=== PATIENT | male | born 1930 | race Caucasian/White ===

== ENCOUNTER 2017-09-18 10:40 | Inpatient (IN) | payer MEDICARE, BC ==
--- NOTE | 2017-09-18 11:14 | RAD ---
PORTABLE AP CHEST XRAY: DATE: 09/18/17. HISTORY: Dyspnea. Abdominal problems. COMPARISON: None available. FINDINGS: Cardiac silhouette is magnified by projection. Pulmonary vasculature is within normal limits. There is mild focal eventration of the right hemidiaphragm. Lungs are clear. Degenerative changes are se en in the spine. Vascular calcification in the thoracic aorta. IMPRESSION: No acute cardiopulmonary process. POS: [facility]
[2017-09-18 11:26] LABS: #Eosinphils 0.2 thou/uL (0.0-0.7); #Monocytes 0.7 thou/uL (0.11-0.59); #Neutrophils 8.5 thou/uL (1.40-6.50); %Basophils 0.2 % (0.0-1.0); %Eosinophils 1.5 % (0.0-10.0); %Lymphocytes 9.7 % (21.0-51.0); %Monocytes 6.3 % (0.0-10.0); %Neutrophils 82.3 % (42.0-75.0); Hemoglobin 13.3 g/dL (14.0-18.0); Mean Corpuscular HGB CONC 33.7 g/dL (32.0-36.0); Mean Corpuscular Hemoglobin 32.1 pg (27.0-31.0); Mean Corpuscular Volume 95.1 fl (80.0-94.0); Mean Platelet Volume 7.8 fL (7.4-10.4); Platelet Count 198 thou/uL (130-400); RBC Distribution Width 12.7 % (11.5-14.5); Red Blood Cell (RBC) Count 4.15 mill/uL (4.70-6.10); White Blood Cell (WBC) Count 10.3 thou/uL (4.8-10.8)
[2017-09-18 11:40] LABS: ALT (SGPT) 13 U/L (8-55); AST (SGOT) 19 U/L (5-34); Albumin 3.4 g/dL (3.4-4.8); Alkaline Phosphatase 47 U/L (40-150); Anion Gap 18 mmol/L (10-20); BUN (Urea Nitrogen) 35 mg/dL (8.4-25.7); Bilirubin, Total 2.8 mg/dL (0.2-1.2); Calc. Creatinine Clearance 0 mL/min (70-130); Calcium 9.4 mg/dL (7.8-10.44); Carbon Dioxide 21 mmol/L (23-31); Chloride 102 mmol/L (98-107); Estimated GFR-MDRD 39; Globulin 2.6 g/dL (2.4-3.5); Glucose 275 mg/dL (83-110); Sodium 137 mmol/L (136-145)
[2017-09-18 13:46] LABS: INR-International Normal Ratio 1.3; Prothrombin Time 16.3 SEC (12.0-14.7)
--- NOTE | 2017-09-18 13:48 | CT ---
CT ABDOMEN AND PELVIS WITHOUT CONTRAST: Date: 09/18/17 HISTORY: Abdominal pain. COMPARISON: None. FINDINGS: There are layering bilateral pleural effusions, larger on the right and smaller on the left. Compress erlin atelectasis in lung bases. No significant pericardial effusion. Moderate volume ascites is present in the pelvis. The hepatic contour is nodular with innumerable hypodensities throughout it, concerning for hypodense masses. Spleen is small. Moderate diverticular disease sigmoid colon without active inflammation. Aortoiliac contour is nonaneurysmal, although there is a focal area of ectasia in infrarenal aorta me asuring up to 2.6 cm. Pancreas is somewhat atrophic. Small sliding hiatal hernia. There is a posterior diaphragmatic hernia containing some fluid. Bilateral hip arthroplasties are present. Large flowing lateral osteophytes of the lumbar spine. IMPRESSION: 1. Large right and small left layering pleural effusion with compressive atelectasis. 2. Abnormal nodular appearance of the liver with numerous hypodensities concerning for masses. Given patient's low GFR, ultrasound of the liver may be beneficial to evaluate for masses. Metastatic dise ase within the differential versus hepatocellular carcinoma multifocal. 3. Moderate to large volume ascites. This is present without evidence of portal hypertension. 4. Absent right kidney. There is a punctate calculus in inferior pole of the left kidney without douglas dence of obstructive uropathy. 4. Moderate diverticular disease throughout the colon without evidence of active inflammation. 5. Normal appearance of the appendix. POS: [facility]
[2017-09-18 14:22] VITALS: BMI 26.8
[2017-09-18] MEDS ORDERED: Guaifenesin DM 100-10/5 ML UDCUP PO PRN (15:13)
[2017-09-18] MEDS ORDERED: Dextrose 5% in Water 1,000 ML IV PRN (15:13)
[2017-09-18] MEDS ORDERED: Calcium Carbonate 500 MG ChewTAB PO PRN (15:13)
[2017-09-18] MEDS ORDERED: Dextrose 50% Abboject 50 ML SYRINGE SLOW IVP PRN (15:13)
[2017-09-18] MEDS ORDERED: Milk Of Magnesia 30 ML UDCUP PO PRN (15:13)
[2017-09-18] MEDS ORDERED: Mag-Al 1200 mg/1200 mg/30 ML UDCUP PO PRN (15:13)
[2017-09-18] MEDS ORDERED: Senokot 8.6 MG TAB PO PRN (15:13)
[2017-09-18] MEDS ORDERED: Acetaminophen 325 MG TAB PO PRN (15:13)
--- NOTE | 2017-09-18 15:50 | ULT ---
ABDOMINAL ULTRASOUND: 09/18/17 INDICATIONS: Abdominal pain. There is low volume ascites with fluid seen in all quadrants. Right pleural effusion is also noted. The gallbladder is not imaged and is surgically absent according to the technologist. The common duct is normal caliber. The liver has an abnormal echotexture. The liver is heterogeneous and nodular. These findings may rep resent changes of cirrhosis. There is no focal mass lesion; however, an infiltrative process cannot b e excluded by ultrasound. The pancreas is obscured. The aorta and IVC are obscured and not well imaged. The kidneys are imaged and appear unremarkable with no evidence of hydronephrosis. The spleen is imaged and is unremarkable without evidence of splenomegaly. IMPRESSION: 1. Low volume ascites. 2. Right pleural effusion. 3. Liver is abnormal with heterogeneity and nodular appearance. 4. Post cholecystectomy. POS: [facility]
[2017-09-18] MEDS ORDERED: Sodium Bicarbonate 2.4 MEQ/5 ML ONE (16:22)
[2017-09-18 16:39] LABS: CEA, Serum 1.73 ng/mL (< or = 5.0)
[2017-09-18 16:56] LABS: HBCM Index 0.06 S/CO (0-0.79); Hep A IgM AB Non-Reactive (NonReactive); Hep A IgM S/CO 0.08 S/CO (0-0.79); Hep B Surf Ag Non-Reactive S/CO (NonReactive); Hep C IgG Ab Non-Reactive (NonReactive); Hepatitis B Core IGM Abs Non-Reactive (NonReactive)
[2017-09-18] MEDS: Sodium Chloride 0.9% 500 ML IV SCH ×11 (18:05→23:36)
[2017-09-18] MEDS: Albumin 25% 25 GM/100 ML BOT IVPB SCH (18:06)
[2017-09-18 18:08] LABS: Fluid, Protein 3.9 g/dL (Not Available)
[2017-09-18 18:47] LABS: BF Color Red; Body Fluid Source Ascites Body Fluid; Clarity Cloudy/Turbid (Clear); Tube # EDTA
[2017-09-18 18:48] LABS: RBC Count-Automated 218000 /cumm; WBC/NonHematic-Auto 3120 /cumm
--- NOTE | 2017-09-18 18:54 | HP ---
PRIMARY CARE PHYSICIAN: Dr. Minor. REASON FOR ADMISSION: Multiple mets in the liver with ascites for evaluation. HISTORY OF PRESENT ILLNESS: The patient had gone to see his primary care physician, Dr. Minor last week for low blood pressures at home. He is also having loss of appetite and was feeling dizzy at times. He was asked to follow up in a week and they went back today. The patient was still feeling the same and in fact had beginning of abdominal distention. In view of his symptoms and the abdominal distention, Dr. Minor referred the patient to come to the emergency room for further evaluation. Here in the ER, patient has had a CAT scan done which showed multiple mets in the liver. He also had moderate to large ascites as well which is all new for patient. PAST MEDICAL AND SURGICAL HISTORY: History of hypertension, early dementia, diabetes mellitus type 2, dyslipidemia, history of having 1 kidney, bilateral hip replacement, cholecystectomy. PERSONAL HISTORY: Quit drinking alcohol totally from last two months. He has been drinking heavy for 40 years, but has quit heavy drinking from last 20 years or so now. Does not abuse drugs or smoke. He lives with his in their home. FAMILY HISTORY: Mother of cirrhosis and was alcoholic in her 70s. Father of dementia and its complications in his 70s. CURRENT MEDICATIONS: Toprol-XL 50 mg p.o. daily, Januvia 50 mg p.o. daily, Namenda 10 mg p.o. daily, Zetia 10 mg p.o. daily, aspirin 81 mg p.o. daily, donepezil 10 mg p.o. daily. ALLERGIES: No known drug allergies. REVIEW OF SYSTEMS: The following complete review of systems was negative, unless otherwise mentioned in the HPI or below: Constitutional: Weight loss or gain, ability to conduct usual activities. Skin: Rash, itching. Eyes: Double vision, pain. ENT/Mouth: Nose bleeding, neck stiffness, pain, tenderness. Cardiovascular: Palpitations, dyspnea on exertion, orthopnea. Respiratory: Shortness of breath, wheezing, cough, hemoptysis, fever or night sweats. Gastrointestinal: Poor appetite, abdominal pain, heartburn, nausea, vomiting, constipation, or diarrhea. Genitourinary: Urgency, frequency, dysuria, nocturia. Musculoskeletal: Pain, swelling. Neurologic/Psychiatric: Anxiety, depression. Allergy/Immunologic: Skin rash, bleeding tendency. PHYSICAL EXAMINATION: GENERAL: The patient is an 86-year-old male who is currently not in any acute distress. VITAL SIGNS: Blood pressure 128/76, pulse 104 per minute, respiratory rate 24 per minute, temperature 97.6 degrees Fahrenheit, saturating 94% on room air. NECK: Supple, no elevated JVD. HEENT: Extraocular muscles intact. Pupils reacting to light. Oral cavity mucous membranes are dry. No exudates or congestion. CARDIOVASCULAR: S1, S2 heard. Regular rhythm. RESPIRATORY: Air entry 1+ bilaterally. No rales or rhonchi. ABDOMEN: Soft. Bowel sounds are heard. No rigidity or guarding. There is mild ecchymosis around the umbilicus. The patient does not know the exact cause for the same. No rigidity or guarding. EXTREMITIES: No peripheral edema or calf tenderness. VASCULAR SYSTEM: Peripheral pulses 1+ bilateral, no ischemic ulcerations or gangrene. CENTRAL NERVOUS SYSTEM: No gross focal deficits seen. Patient is alert, awake , and oriented well. PSYCHIATRIC: The patient's mood is euthymic. No hallucinations or delusions. LABORATORY AND X-RAY FINDINGS: PT/INR is 16 and 1.3, PTT 33, BUN 35, creatinine 1.6, glucose 275. Serum bicarbonate 21, total bilirubin 2.8. AST, ALT and alkaline phosphatase are within normal limits. BNP is 95, albumin is 3.4. White count of 10, H and H 13 and 39, platelet count 198, MCV is 95 with 82% neutrophils. CLINICAL IMPRESSION AND PLAN: The patient will be admitted to medical floor for multiple mets in the liver bases on CT scan findings with new onset ascites. It is unclear his primary malignancy at present. The patient has had multiple moles removed for skin cancers in the past. He has also had heavy history of alcohol abuse 20 years ago. We will get an ultrasound guided paracentesis and send the fluid for cytology. We will also obtain tumor markers and hepatitis panel. The patient does not recall having had hepatitis in the past. His overall prognosis is guarded. I have discussed code status with patient and his at bedside. He wants to be a do not resuscitate at present. The patient definitely wants to know which malignancy he has if at all. Once it is proven to be malignant, the patient will decide if he wants to pursue further testing. ANNIED
[2017-09-18 19:19] LABS: BF Segmented Neutrophils 35 %; Cell Count Non Hematic 9 %; Lymphocytes 53 %
[2017-09-18] MEDS: Metoprolol Tartrate 25 MG TAB PO SCH (20:52)
--- NOTE | 2017-09-18 23:36 | ULT ---
EXAM: ULTRASOUND GUIDED PARACENTESIS 09/18/17 HISTORY: Ascites. Evaluate for cytology. Possible liver metastases. COMPARISON: None. FINDINGS: Technically successful ultrasound guided paracentesis. Total of 3 liters of blood tinged ascites was aspirated. There are no immediate or postprocedure complications. TECHNIQUE: Consent obtained to perform an ultrasound guided paracentesis. Patient's abdomen is evaluated. Right lower quadrant was deemed appropriate. Skin was prepped and draped in the sterile fashion. 1% lidocai ne, buffered with sodium bicarbonate was used for local anesthesia. Under ultrasound guidance, a 5 Fr ench 7 cm Yueh catheter was advanced in the peritoneal space. Via vacuum bottles, a total of 3 liters of blood tinged ascites was removed. Patient tolerated the procedure well. No immediate or postproce dure complications. A small amount of ascites does remain after removing three liters. IMPRESSION: Technically successful ultrasound guided paracentesis. POS: [facility]
[2017-09-19] MEDS: Sodium Chloride 0.9% 500 ML IV SCH ×13 (00:02→09:11)
[2017-09-19] MEDS: Albumin 25% 25 GM/100 ML BOT IVPB SCH ×4 (02:09→23:52)
[2017-09-19 05:18] LABS: #Eosinphils 0.1 thou/uL (0.0-0.7); #Monocytes 0.6 thou/uL (0.11-0.59); %Basophils 0.3 % (0.0-1.0); %Eosinophils 1.5 % (0.0-10.0); %Lymphocytes 14.6 % (21.0-51.0); %Monocytes 9.6 % (0.0-10.0); Hemoglobin 9.9 g/dL (14.0-18.0); Mean Corpuscular HGB CONC 34.5 g/dL (32.0-36.0); Mean Corpuscular Hemoglobin 32.7 pg (27.0-31.0); Mean Corpuscular Volume 94.6 fl (80.0-94.0); Platelet Count 145 thou/uL (130-400); RBC Distribution Width 12.7 % (11.5-14.5); Red Blood Cell (RBC) Count 3.04 mill/uL (4.70-6.10); White Blood Cell (WBC) Count 6.7 thou/uL (4.8-10.8)
[2017-09-19 05:25] LABS: ALT (SGPT) 9 U/L (8-55); AST (SGOT) 13 U/L (5-34); Alkaline Phosphatase 34 U/L (40-150); Anion Gap 10 mmol/L (10-20); BUN (Urea Nitrogen) 30 mg/dL (8.4-25.7); Bilirubin, Total 2.3 mg/dL (0.2-1.2); Calc. Creatinine Clearance 54 mL/min (70-130); Calcium 8.2 mg/dL (7.8-10.44); Carbon Dioxide 23 mmol/L (23-31); Chloride 105 mmol/L (98-107); Estimated GFR-MDRD 54; Globulin 1.9 g/dL (2.4-3.5); Glucose 167 mg/dL (83-110); Potassium 3.2 mmol/L (3.5-5.1); Protein, Total 4.9 g/dL (5.8-8.1); Sodium 135 mmol/L (136-145)
[2017-09-19] MEDS: Enoxaparin Sodium 30 MG/0.3 ML SYRINGE SC SCH (08:07)
[2017-09-19] MEDS: Metoprolol Tartrate 25 MG TAB PO SCH ×2 (10:46→21:30)
--- NOTE | 2017-09-19 11:37 | CON ---
DATE OF SERVICE: 09/19/2017 RENAL MEDICINE SUBJECTIVE: Patient was admitted for further evaluation of multiple mets in the liver. He was also found to have ascites. He underwent a paracentesis - about 3 liters removed. We are now being consu lted for his acute kidney injury. His initial creatinine was noted at 1.67. I discussed the case wi Dr. Shah. He was given saline and salt poor albumin and this improved the creatinine now t o 1.27. He was also noted to be on the dry side at that time. This morning, I evaluated the patient, he has no new complaints. He said he is feeling better. REVIEW OF SYSTEMS: No chest pain. Positive for abdominal fullness, occasional shortness of breath, no nausea, no vomiting, no diarrhea, no constipation, no hematochezia, no melena, no hematemesis. Ap petite and energy level is fair. No headache, no diplopia, no syncopal episode. Occasional joint pa ins. Positive for abdominal fullness. MEDICATIONS: Currently on albumin 25 grams IV q.6, Tums 1000 mg q.4, Lovenox 30 mg subcu every day, Humalog sliding scale, Lopressor 12.5 mg p.o. b.i.d., Senna 2 tabs at bedtime p.r.n. PAST MEDICAL HISTORY: 1. Hypertension. 2. History of early dementia. 3. Type 2 diabetes mellitus. 4. Dyslipidemia. 5. Solitary kidney. 6. DJD. PAST SURGICAL HISTORY: 1. Status post bilateral hip replacement. 2. Status post cholecystectomy. SOCIAL HISTORY: Patient is a heavy drinker for the last several years, but recently quit alcohol int suresh. He is and lives with his . He has two adopted children. He is a retired [employer] for [employer]. Education, Ph.D. No drug abuse. Denies any blood transfusion. FAMILY HISTORY: Noncontributory. ALLERGIES: None. TRAUMA: None. IMMUNIZATIONS: Up to date. HOSPITALIZATIONS: Please see past medical history. PHYSICAL EXAMINATION: VITAL SIGNS: Blood pressure is noted at 111/62, heart rate 76, respiratory rate 18, temperature 99.2 , and pulse ox 91%. GENERAL: Awake, supine, comfortable, not in distress. SKIN: Adequate turgor. HEENT: He has slightly pale conjunctivae, anicteric sclerae. NECK: No neck mass, no carotid bruits, no JVD. CHEST: No deformities. LUNGS: Clear breath sounds, no wheezing, no crackles. HEART: Normal sinus rhythm. No murmurs, no gallops or rubs. ABDOMEN: Globular, soft, nontender. Positive for mild ascites. EXTREMITIES: No edema, no deformities. NEUROLOGIC: Awake and oriented to 3 spheres. Moving all extremities. No tremors, no asterixis, no ataxia. LABORATORY DATA: Laboratories of 09/19/2017, white count 6.7, hemoglobin 9.9. Sodium 135, carbon dioxide 23, potassium 3.2, BUN 30, creatinine 1.27, calcium 8.2, albumin 3.0. IMAGING DATA: On 09/18/2017, CT scan of the abdomen and pelvis showed large right and small pleural effusion. Abnormal nodular appearance of liver with numerous hypodensities suggestive of a possible metastatic cancer. He has moderate to large volume ascites. Left kidney shows no evidence of obstru ctive uropathy. ASSESSMENT AND PLAN: 1. Acute kidney injury - most likely a hemodynamically mediated renal dysfunction. It improved with volume repletion with normal saline and salt poor albumin. My plan is to continue the salt poor alb umin 25 grams IV q.6 for 3 more days. 2. Metastatic liver disease - await being further worked up. GI/Oncology consultation awaiting. 3. Ascites. Patient is status post paracentesis. Three liters of ascites was removed. Overall, pr ognosis remains guarded. Recheck base met and CBC in a.m.
--- NOTE | 2017-09-19 12:11 | PDOC.PN ---
- Subjective Encounter Start Date: 09/19/17 Encounter Start Time: 10:40 Subjective: no sob, feels better - Objective Resuscitation Status: Resuscitation Status DNR:Do Not Resuscitate MAR Reviewed: Yes Vital Signs & Weight: Vital Signs (12 hours) Temp Pulse Resp BP Pulse Ox 09/19/17 11:43 97.4 F L 78 18 117/69 91 L 09/19/17 08:00 99.2 F 76 18 91 L 09/19/17 07:53 99.2 F 76 18 111/62 91 L 09/19/17 03:43 97.9 F 78 16 102/62 92 L 09/19/17 01:34 83 107/66 Weight Weight 198 lb I&O: 09/18/17 09/19/17 09/20/17 06:59 06:59 07:59 Intake Total 3220 Output Total 650 Balance 2570 Result Diagrams: 09/19/17 04:04 09/19/17 04:04 Additional Labs: Accuchecks 09/19/17 09/19/17 09/18/17 11:29 05:39 19:47 POC Glucose 240 H 179 H 222 H 09/18/17 17:30 POC Glucose 200 H Phys Exam - Physical Examination HEENT: PERRLA, moist MMs Neck: no JVD, supple Respiratory: no wheezing, no rales Cardiovascular: RRR, no significant murmur Gastrointestinal: soft, non-tender, positive bowel sounds Musculoskeletal: no edema, pulses present Neurological: non-focal, moves all 4 limbs Psychiatric: A&O x 3 Dx/Plan (1) Liver mass Code(s): R16.0 - HEPATOMEGALY, NOT ELSEWHERE CLASSIFIED Status: Acute (2) Ascites Code(s): R18.8 - OTHER ASCITES Status: Acute Qualifiers: Ascites type: malignant Qualified Code(s): R18.0 - Malignant ascites (3) Cirrhosis Code(s): K74.60 - UNSPECIFIED CIRRHOSIS OF LIVER Status: Chronic Qualifiers: Hepatic cirrhosis type: alcoholic cirrhosis Ascites presence: with ascites Qualified Code(s): K70.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 (4) HTN (hypertension) Code(s): I10 - ESSENTIAL (PRIMARY) HYPERTENSION Status: Chronic Qualifiers: Hypertension type: essential hypertension Qualified Code(s): I10 - Essential (primary) hypertension (5) Dyslipidemia Code(s): E78.5 - HYPERLIPIDEMIA, UNSPECIFIED Status: Chronic (6) Dementia Code(s): F03.90 - UNSPECIFIED DEMENTIA WITHOUT BEHAVIORAL DISTURBANCE Status: Chronic Qualifiers: Dementia type: Alzheimer's disease Dementia behavioral disturbance: without behavioral disturbance (7) YARY (acute kidney injury) Code(s): N17.9 - ACUTE KIDNEY FAILURE, UNSPECIFIED Status: Acute - Plan had paracentesis with removal of 3lts bloody fluid -: await cytology of fluid -: d/w reg CT and usg findings -: sodium and renal function is stablizing -: d/w and pt at bedside * . Review of Systems - Medications/Allergies Allergies/Adverse Reactions: Allergies Allergy/AdvReac Type Severity Reaction Status Date / Time No Known Allergies Allergy Verified 09/18/17 14:26 Medications: Current Medications Acetaminophen (Tylenol) 650 mg PO Q4H PRN PRN Reason: Headache/Fever or Pain Al Hydroxide/Mg Hydroxide (Maalox) 30 ml PO Q6H PRN PRN Reason: Heartburn or Indigestion Albumin Human (Albumin 25%) 25 gm IVPB 0200,1000,1800 [facility] Stop: 09/20/17 03:01 Last Admin: 09/19/17 10:46 Dose: 25 gm Calcium Carbonate (Tums) 1,000 mg PO Q4H PRN PRN Reason: Heartburn or Indigestion Dextrose/Water (Dextrose 50%) 25 gm SLOW IVP PRN PRN PRN Reason: Hypoglycemia Enoxaparin Sodium (Lovenox) 30 mg SC 0900 [facility] Last Admin: 09/19/17 08:07 Dose: 30 mg Glucagon (Glucagon) 1 mg IM PRN PRN PRN Reason: Hypoglycemia Guaifenesin/Dextromethorphan (Robitussin Dm) 15 ml PO Q4H PRN PRN Reason: Cough Dextrose/Water (D5w) 1,000 mls @ 0 mls/hr IV .Q0M PRN; As Directed PRN Reason: Hypoglycemia Insulin Human Lispro (Humalog) 0 units SC .MILD SLIDING SCALE PRN PRN Reason: Mild Correctional Scale Magnesium Hydroxide (Milk Of Magnesium) 30 ml PO DAILYPRN PRN PRN Reason: Constipation Metoprolol Tartrate (Lopressor) 12.5 mg PO BID [facility] Last Admin: 09/19/17 10:46 Dose: 12.5 mg Senna (Senokot) 2 tab PO HSPRN PRN PRN Reason: Constipation
[2017-09-19] MEDS: HumaLOG 300 UNITS/3 ML VIAL SC PRN (12:46)
[2017-09-19] MEDS ORDERED: Albumin 25% 25 GM/100 ML BOT IVPB SCH (18:00)
--- NOTE | 2017-09-20 00:50 | CON ---
DATE OF CONSULTATION: 09/19/2017 REFERRING PHYSICIAN: Dr. Alissa Shah. REASON FOR CONSULTATION: Anorexia, vague abdominal discomfort, not feeling good. HISTORY OF PRESENT ILLNESS: Mr. Joseph Martínez is a very pleasant 86-year-old male, who is a regular patient of Dr. Duke Minor. The patient has been feeling very weak and also his blood press ure is running low and has been feeling dizzy off and on. He also has poor appetite. The patient wa s seen in the room along with his . The patient was seen by Dr. Minor a week ago, because of gene ralized weakness. We went back to see him again and Dr. Minor referred him to the ER for admission. The patient has a history of alcohol abuse for many years. He is drinking very heavily for nearly 20 years. However, last 20 years, he is cut down his drinking. He still drinks alcohol at least 1 or 2 drinks a day. His tells me when he drinks alcohol, he is very generous with pouring alcohol, but when she makes his cocktail, she wants to use a small amount of alcohol. Over the last two month s, he stopped drinking completely. The patient is feeling dizzy with generalized fatigue and tiredne ss and weakness over the last couple of weeks. He has also been not eating very well. He lost a few pounds, but she is not able to tell me how much weight he has lost. He came to the ER and was hospi talized. The patient had an abdominal CAT scan. The CAT scan shows ascites and also multiple hypode nse lesions in the liver, possibly metastatic disease versus primary hepatocellular carcinoma. Wilner demarco, had abdominal sonogram subsequently. The sonogram shows a nodular liver and the liver archi tecture is different. However, there is no definite liver masses seen. He had a paracentesis done y esterday with 3 liters of fluid drained. The fluid was bloody. The cytology is pending at the prese nt time. Since his paracentesis, he is actually feeling a whole lot better. The patient has no abdo rancho pain, no nausea or vomiting. His bowel movements are fairly regular. No history of hematochez ia or melena. The patient had a serum alpha fetoprotein level, which came back normal at 2. He has no prior history of any liver disease. No prior history of hepatitis C or B. No relevant history. ALLERGIES: None. SOCIAL HISTORY: The patient is . He does have mild dementia as per the patient's . The patient was drinking alcohol heavily for nearly 20 years, but he stopped drinking 20 years ago, but s till was drinking 5 times a week until 2 months ago. He stopped drinking completely alcohol 2 months ago. Does not smoke. MEDICAL ILLNESSES: 1. Hypertension. 2. Early dementia and his memory loss varies. His tells me sometimes he is completely cognitio n, sometimes he gets confused. 3. Type 2 diabetes. 4. Hyperlipidemia. 5. Has had only one kidney for many years. 6. Bilateral hip replacement. 7. Cholecystectomy. FAMILY HISTORY: Multiple family members have had alcoholic problem with liver cirrhosis. This inclu nona his mother and also an aunt on mother's side. Father of dementia. MEDICATIONS: Include: 1. Toprol-XL 50 once a day. 2. Januvia 50 once a day. 3. Namenda 10 mg once a day. 4. Zetia 10 mg once a day. 5. Aspirin 81 mg once a day. 6. Donepezil 10 mg p.o. once a day. REVIEW OF SYSTEMS: Constitutional: No history of fever or night sweats, but does have a history of poor appetite and weight loss recently. Central nervous system: No history of seizure disorder. No chronic headache, no syncope, no TIA. Respiratory system: No history of chronic cough, hemoptysis, dyspnea on exertion. Cardiovascular system: No chest pain, no palpitation, no orthopnea or PND. G astrointestinal: History of anorexia, poor appetite with not eating well over the last couple of wee ks or more. History of weight loss . No history of dysphagia or odynophagia. No history of he matochezia or melena. Genitourinary: Denies any dysuria, hematuria or frequent urination. Musculos keletal: Has some back pain. Neuropsychiatric: History of dementia, mild. Other system review is unremarkable. PHYSICAL EXAMINATION: GENERAL: This is a very pleasant, elderly male, appears very comfortable. He is awake, al ert, and communicative. He is in no distress. VITAL SIGNS: Temperature 97.4 degrees Fahrenheit, pulse is 78, blood pressure is 117/69. HEENT: Conjunctivae clear. NECK: Supple. No adenitis or thyromegaly noted. CARDIOVASCULAR SYSTEM: First and second heart sounds are normal. LUNGS: Clear to auscultation. ABDOMEN: Soft to palpate. Abdomen is mildly distended. He still has ascites. There is no organome elaina or masses. Bowel sounds are normal. EXTREMITIES: Reveal no edema. CENTRAL NERVOUS SYSTEM: Grossly within normal limits. ADMITTING LABORATORY DATA: CBC: WBC today is 6700, hemoglobin 9.9 and dropped from 13.3, hematocrit 28.7, MCV 94.7, platelet count is 145,000, polymorphs 74, lymphocytes 14, monocytes 9. Serum chemis tries: Sodium 135, potassium 3.2, chloride 105, bicarbonate 23, BUN is 30, creatinine is 1.27, gluco se 167, calcium 8.2, bilirubin 2.3, AST 13, ALT 9, alkaline phosphatase 34, total protein 12.9. album in 3, globulin 1.9. An abdominal CAT scan done shows multiple hypodense lesions in the liver, possib ly primary hepatocellular carcinoma versus metastatic disease with ascites. His right kidney is miss ing. An abdominal sonogram shows no liver masses, but does show nodular liver, indicating liver cirr hosis. The ascitic tap done yesterday, which showed numerous rbc's and fluid with blood stain. It i s probably clear with a blood stained fluid indicating malignancy or he had a traumatic paracentesis. The cytology is pending at the present time. Interestingly, his serum AFP level is actually normal , less than 2, it makes hepatoma unlikely. I reviewed the sonogram and CAT scan findings with Radiol ogy. The CAT scan does show some hypodense lesion, but the sonogram does not show any liver masses. OVERALL IMPRESSION: The history and physical findings are very suggestive of: 1. Liver cirrhosis with ascites. The ascitic fluid cytology pending at the present time. 2. Liver masses on CAT scan, but sonogram shows no liver masses. 3. Absent right kidney. Recommendation is to await cytology for fluid . 4. Consider doing an MRI, a better study. The patient has seen the mold preparer in [facility]. I will sign off the patient to the mold preparer who saw him before.
[2017-09-20 04:42] LABS: #Eosinphils 0.2 thou/uL (0.0-0.7); #Lymphocytes 0.9 thou/uL (1.20-3.40); #Monocytes 0.7 thou/uL (0.11-0.59); #Neutrophils 5.6 thou/uL (1.40-6.50); %Basophils 0.1 % (0.0-1.0); %Eosinophils 2.2 % (0.0-10.0); %Lymphocytes 12.6 % (21.0-51.0); %Monocytes 8.9 % (0.0-10.0); %Neutrophils 76.2 % (42.0-75.0); Hemoglobin 9.9 g/dL (14.0-18.0); Mean Corpuscular HGB CONC 34.6 g/dL (32.0-36.0); Mean Corpuscular Hemoglobin 32.6 pg (27.0-31.0); Mean Corpuscular Volume 94.1 fl (80.0-94.0); Mean Platelet Volume 7.6 fL (7.4-10.4); Platelet Count 139 thou/uL (130-400); RBC Distribution Width 12.7 % (11.5-14.5); Red Blood Cell (RBC) Count 3.05 mill/uL (4.70-6.10); White Blood Cell (WBC) Count 7.4 thou/uL (4.8-10.8)
[2017-09-20 04:53] LABS: Anion Gap 10 mmol/L (10-20); BUN (Urea Nitrogen) 19 mg/dL (8.4-25.7); Calc. Creatinine Clearance 65 mL/min (70-130); Calcium 8.3 mg/dL (7.8-10.44); Carbon Dioxide 22 mmol/L (23-31); Chloride 106 mmol/L (98-107); Estimated GFR-MDRD 67; Glucose 170 mg/dL (83-110); Potassium 3.4 mmol/L (3.5-5.1); Sodium 135 mmol/L (136-145)
[2017-09-20] MEDS: Albumin 25% 25 GM/100 ML BOT IVPB SCH ×4 (05:21→23:46)
[2017-09-20] MEDS: HumaLOG 300 UNITS/3 ML VIAL SC PRN ×2 (06:36→17:30)
[2017-09-20] MEDS: Metoprolol Tartrate 25 MG TAB PO SCH ×2 (08:49→20:26)
[2017-09-20] MEDS: Enoxaparin Sodium 30 MG/0.3 ML SYRINGE SC SCH (08:51)
[2017-09-20] MEDS ORDERED: Tamsulosin HCl 0.4 MG CAP PO SCH (09:15)
--- NOTE | 2017-09-20 11:56 | MRI ---
MRI ABDOMEN WITHOUT CONTRAST: Date: 09/20/17 PROVIDED CLINICAL HISTORY: Liver masses on CT examination. FINDINGS: Multiplanar, multisequence MR imaging was performed of the abdomen. The patient was unable to suspend respiration necessary for adequate imaging. Ascites is noted. Multiple nodular foci of signal altera tion on fluid sensitive sequences are noted throughout the hepatic parenchyma, incompletely character ized on the basis of this examination. Nonspecific regional marrow signal alteration involving the sp ine, which may be on the basis of red marrow reconversion. IMPRESSION: Nondiagnostic examination. Repeat imaging recommended when the patient is able to tolerate such. POS: [facility]
--- NOTE | 2017-09-20 13:28 | PDOC.PN ---
- Subjective Encounter Start Date: 09/20/17 Encounter Start Time: 12:00 Subjective: awake, not in distress - Objective Resuscitation Status: Resuscitation Status DNR:Do Not Resuscitate MAR Reviewed: Yes Vital Signs & Weight: Vital Signs (12 hours) Temp Pulse Resp BP Pulse Ox 09/20/17 11:55 97.5 F L 82 18 120/72 94 L 09/20/17 08:00 97.8 F 93 18 92 L 09/20/17 07:49 97.8 F 93 18 117/74 92 L Weight Weight 198 lb I&O: 09/19/17 09/20/17 09/21/17 05:59 06:59 06:59 Intake Total Output Total Balance Result Diagrams: 09/20/17 04:22 09/20/17 04:22 Additional Labs: Accuchecks 09/20/17 09/20/17 09/19/17 11:49 05:45 20:48 POC Glucose 196 H 198 H 185 H 09/19/17 17:51 POC Glucose 140 H Phys Exam - Physical Examination HEENT: PERRLA, moist MMs Neck: no JVD, supple Respiratory: no wheezing, no rales Cardiovascular: RRR, no significant murmur Gastrointestinal: soft, non-tender, positive bowel sounds ascites+ Musculoskeletal: no edema, pulses present Neurological: non-focal, moves all 4 limbs Dx/Plan (1) Liver mass Code(s): R16.0 - HEPATOMEGALY, NOT ELSEWHERE CLASSIFIED Status: Acute (2) Ascites Code(s): R18.8 - OTHER ASCITES Status: Acute Qualifiers: Ascites type: malignant Qualified Code(s): R18.0 - Malignant ascites (3) Cirrhosis Code(s): K74.60 - UNSPECIFIED CIRRHOSIS OF LIVER Status: Chronic Qualifiers: Hepatic cirrhosis type: alcoholic cirrhosis Ascites presence: with ascites Qualified Code(s): K70.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 (4) HTN (hypertension) Code(s): I10 - ESSENTIAL (PRIMARY) HYPERTENSION Status: Chronic Qualifiers: Hypertension type: essential hypertension Qualified Code(s): I10 - Essential (primary) hypertension (5) Dyslipidemia Code(s): E78.5 - HYPERLIPIDEMIA, UNSPECIFIED Status: Chronic (6) Dementia Code(s): F03.90 - UNSPECIFIED DEMENTIA WITHOUT BEHAVIORAL DISTURBANCE Status: Chronic Qualifiers: Dementia type: Alzheimer's disease Dementia behavioral disturbance: without behavioral disturbance (7) YARY (acute kidney injury) Code(s): N17.9 - ACUTE KIDNEY FAILURE, UNSPECIFIED Status: Resolved - Plan pt did not tolerate MRI procedure, needs redo -: await cytology of ascitic fluid -: likely has cirrhosis with prior alc abuse -: is on low dose lopressor, may dc alb infusions if ok with nephrology -: to amb as tolerated * . Review of Systems - Medications/Allergies Allergies/Adverse Reactions: Allergies Allergy/AdvReac Type Severity Reaction Status Date / Time No Known Allergies Allergy Verified 09/18/17 14:26 Medications: Current Medications Acetaminophen (Tylenol) 650 mg PO Q4H PRN PRN Reason: Headache/Fever or Pain Al Hydroxide/Mg Hydroxide (Maalox) 30 ml PO Q6H PRN PRN Reason: Heartburn or Indigestion Albumin Human (Albumin 25%) 25 gm IVPB Q6HR [facility] Stop: 09/22/17 12:01 Last Admin: 09/20/17 12:00 Dose: 25 gm Calcium Carbonate (Tums) 1,000 mg PO Q4H PRN PRN Reason: Heartburn or Indigestion Dextrose/Water (Dextrose 50%) 25 gm SLOW IVP PRN PRN PRN Reason: Hypoglycemia Enoxaparin Sodium (Lovenox) 30 mg SC 0900 [facility] Last Admin: 09/20/17 08:51 Dose: 30 mg Glucagon (Glucagon) 1 mg IM PRN PRN PRN Reason: Hypoglycemia Guaifenesin/Dextromethorphan (Robitussin Dm) 15 ml PO Q4H PRN PRN Reason: Cough Dextrose/Water (D5w) 1,000 mls @ 0 mls/hr IV .Q0M PRN; As Directed PRN Reason: Hypoglycemia Insulin Human Lispro (Humalog) 0 units SC .MILD SLIDING SCALE PRN PRN Reason: Mild Correctional Scale Last Admin: 09/20/17 06:36 Dose: 2 unit Magnesium Hydroxide (Milk Of Magnesium) 30 ml PO DAILYPRN PRN PRN Reason: Constipation Metoprolol Tartrate (Lopressor) 12.5 mg PO BID [facility] Last Admin: 09/20/17 08:49 Dose: 12.5 mg Senna (Senokot) 2 tab PO HSPRN PRN PRN Reason: Constipation
--- NOTE | 2017-09-20 17:26 | PRG ---
DATE OF SERVICE: 09/20/2017 HOSPITAL VISIT NOTE SUBJECTIVE: This is an 86-year-old male with past history of alcohol abuse who presents wi th generalized weakness, hypotension and ascites. He also had abdominal CAT scan which revealed ques tionable liver mets. Also, possibility of hepatocellular carcinoma. However, his ASA level is justin l. His subsequent followup visit shows no evidence of malignancy. I will discuss this with radiolog ist MRI of the abdomen today. The patient has done well since we did abdominal paracentesis. He is not having discomfort with abdominal pain and nausea, etc. He has good appetite. His ascitic fluid cytology is pending. PHYSICAL EXAMINATION: VITAL SIGNS: Afebrile, pulse 93, blood pressure 117/74. CARDIOVASCULAR SYSTEM: First and second heart sounds normal. LUNGS: Clear to auscultation. ABDOMEN: Soft and nontender. He has some ascites. No rebound or guarding. ASSESSMENT AND PLAN: 1. Liver cirrhosis, ascites. 2. Questionable history of liver mets versus primary hepatocellular carcinoma, so far the workup has been unequivocal. Plan fluid restriction. 3. MRI of abdomen today. Further recommendations will be dependent on MRI findings.
[2017-09-21] MEDS: Albumin 25% 25 GM/100 ML BOT IVPB SCH (05:10)
[2017-09-21] MEDS: Enoxaparin Sodium 30 MG/0.3 ML SYRINGE SC SCH (09:22)
[2017-09-21] MEDS: Metoprolol Tartrate 25 MG TAB PO SCH (09:22)
[2017-09-21] MEDS: HumaLOG 300 UNITS/3 ML VIAL SC PRN (12:14)
--- NOTE | 2017-09-21 12:27 | PDOC.PN ---
- Subjective Encounter Start Date: 09/21/17 Encounter Start Time: 11:10 Subjective: awake, not in distress, at bedside -: is amb in room, eating well -: no abd pain - Objective Resuscitation Status: Resuscitation Status DNR:Do Not Resuscitate MAR Reviewed: Yes Vital Signs & Weight: Vital Signs (12 hours) Temp Pulse Resp BP Pulse Ox 09/21/17 08:00 98.1 F 89 16 115/68 91 L Weight Weight 198 lb I&O: 09/20/17 09/21/17 09/22/17 06:59 06:59 06:59 Intake Total 1100 Output Total 250 Balance 850 Result Diagrams: 09/20/17 04:22 09/20/17 04:22 Additional Labs: Accuchecks 09/21/17 09/21/17 09/20/17 11:20 05:29 21:28 POC Glucose 298 H 182 H 185 H 09/20/17 16:30 POC Glucose 233 H Phys Exam - Physical Examination HEENT: PERRLA, moist MMs Neck: no JVD, supple Respiratory: no wheezing, no rales Cardiovascular: RRR, no significant murmur Gastrointestinal: soft, non-tender, positive bowel sounds ascites++ Musculoskeletal: no edema, pulses present Neurological: non-focal, moves all 4 limbs Psychiatric: A&O x 3 Dx/Plan (1) Liver mass Code(s): R16.0 - HEPATOMEGALY, NOT ELSEWHERE CLASSIFIED Status: Acute (2) Ascites Code(s): R18.8 - OTHER ASCITES Status: Acute Qualifiers: Ascites type: due to alcoholic cirrhosis Qualified Code(s): K70.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 (3) Cirrhosis Code(s): K74.60 - UNSPECIFIED CIRRHOSIS OF LIVER Status: Chronic Qualifiers: Hepatic cirrhosis type: alcoholic cirrhosis Ascites presence: with ascites Qualified Code(s): K70.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 (4) HTN (hypertension) Code(s): I10 - ESSENTIAL (PRIMARY) HYPERTENSION Status: Chronic Qualifiers: Hypertension type: essential hypertension Qualified Code(s): I10 - Essential (primary) hypertension (5) Dyslipidemia Code(s): E78.5 - HYPERLIPIDEMIA, UNSPECIFIED Status: Chronic (6) Dementia Code(s): F03.90 - UNSPECIFIED DEMENTIA WITHOUT BEHAVIORAL DISTURBANCE Status: Chronic Qualifiers: Dementia type: Alzheimer's disease Dementia behavioral disturbance: without behavioral disturbance (7) YARY (acute kidney injury) Code(s): N17.9 - ACUTE KIDNEY FAILURE, UNSPECIFIED Status: Resolved - Plan start lasix and spironolactone with nadolol -: asc fluid cytometry showed no malignant cells but fluid was bloody ?traumat -: -ic tap. Initial CT was suspicious for mets but usg said likely nodules fro -: -m cirrhotic liver. Will get repeat MRI abd in am and hope he can tolerate -: -it better with good images to confirm liver mass. D/w all this with * . Review of Systems - Medications/Allergies Allergies/Adverse Reactions: Allergies Allergy/AdvReac Type Severity Reaction Status Date / Time No Known Allergies Allergy Verified 09/18/17 14:26 Medications: Current Medications Acetaminophen (Tylenol) 650 mg PO Q4H PRN PRN Reason: Headache/Fever or Pain Al Hydroxide/Mg Hydroxide (Maalox) 30 ml PO Q6H PRN PRN Reason: Heartburn or Indigestion Calcium Carbonate (Tums) 1,000 mg PO Q4H PRN PRN Reason: Heartburn or Indigestion Dextrose/Water (Dextrose 50%) 25 gm SLOW IVP PRN PRN PRN Reason: Hypoglycemia Enoxaparin Sodium (Lovenox) 30 mg SC 0900 [facility] Last Admin: 09/21/17 09:22 Dose: 30 mg Furosemide (Lasix) 40 mg SLOW IVP 0600,1400 [facility] Glucagon (Glucagon) 1 mg IM PRN PRN PRN Reason: Hypoglycemia Guaifenesin/Dextromethorphan (Robitussin Dm) 15 ml PO Q4H PRN PRN Reason: Cough Dextrose/Water (D5w) 1,000 mls @ 0 mls/hr IV .Q0M PRN; As Directed PRN Reason: Hypoglycemia Insulin Human Lispro (Humalog) 0 units SC .MILD SLIDING SCALE PRN PRN Reason: Mild Correctional Scale Last Admin: 09/21/17 12:14 Dose: 4 unit Magnesium Hydroxide (Milk Of Magnesium) 30 ml PO DAILYPRN PRN PRN Reason: Constipation Nadolol (Corgard) 40 mg PO DAILY [facility] Senna (Senokot) 2 tab PO HSPRN PRN PRN Reason: Constipation Spironolactone (Aldactone) 25 mg PO [facility] Stop: 09/21/17 14:00 Spironolactone (Aldactone) 25 mg PO [facility]
[2017-09-21] MEDS ORDERED: Spironolactone 25 MG TAB PO SCH (12:30)
[2017-09-21] MEDS: Furosemide 40 MG/4 ML VIAL SLOW IVP SCH (13:36)
--- NOTE | 2017-09-21 17:08 | PRG ---
DATE OF SERVICE: 09/21/2017 SUBJECTIVE: The patient is feeling well. He has no complaints. He is having no nausea, vomiting or abdominal pain. OBJECTIVE: VITAL SIGNS: Temperature 97.6, pulse 65, respiratory rate 18, blood pressure 113/71. CHEST: Clear. CARDIOVASCULAR: Regular rate and rhythm. ABDOMEN: Soft, distended without organomegaly or masses. It is nontender. EXTREMITIES: Show no pitting edema. LABORATORY DATA: Shows a white blood cell count of 7.4, hemoglobin 9.9, hematocrit 28.7. Laboratory shows a total bilirubin of 2.3, alkaline phosphatase 34, normal AST and ALT. Albumin is 3.0. Perit valdez fluid shows a 3100 white blood cells and 2218 rbc's, 35% neutrophils. Fluid albumin was 2.6 gr ams per deciliter. Albumin was 3.4 grams per deciliter on admission and 3.0 grams per deciliter late r that day. Serology for hepatitis A, B, and C are negative. ASSESSMENT: 1. New onset ascites -- most likely secondary to cirrhosis. 2. Liver mass by CT scan. 3. Abnormal peritoneal fluid -- high white blood cell count and increased neutrophils. RECOMMENDATIONS: 1. Agree with spironolactone and Lasix. 2. Stable for discharge from GI standpoint. 3. Low sodium diet. 4. The patient is to follow up with Dr. Brown in the outpatient setting. 5. Repeat MRI tomorrow.
[2017-09-22] MEDS: Furosemide 40 MG/4 ML VIAL SLOW IVP SCH ×2 (05:16→14:42)
[2017-09-22] MEDS: HumaLOG 300 UNITS/3 ML VIAL SC PRN ×2 (05:43→16:30)
[2017-09-22] MEDS ORDERED: Spironolactone 25 MG TAB PO SCH ×2 (08:00→18:00)
[2017-09-22 08:59] LABS: #Eosinphils 0.2 thou/uL (0.0-0.7); #Lymphocytes 1.7 thou/uL (1.20-3.40); #Monocytes 0.9 thou/uL (0.11-0.59); #Neutrophils 6.9 thou/uL (1.40-6.50); %Lymphocytes 17.7 % (21.0-51.0); %Monocytes 9.3 % (0.0-10.0); %Neutrophils 70.9 % (42.0-75.0); Hemoglobin 12.2 g/dL (14.0-18.0); Mean Corpuscular HGB CONC 34.1 g/dL (32.0-36.0); Mean Corpuscular Hemoglobin 32.1 pg (27.0-31.0); Mean Corpuscular Volume 94.1 fl (80.0-94.0); Mean Platelet Volume 7.3 fL (7.4-10.4); Platelet Count 197 thou/uL (130-400); RBC Distribution Width 12.8 % (11.5-14.5); Red Blood Cell (RBC) Count 3.79 mill/uL (4.70-6.10); White Blood Cell (WBC) Count 9.7 thou/uL (4.8-10.8)
[2017-09-22] MEDS: Enoxaparin Sodium 30 MG/0.3 ML SYRINGE SC SCH (09:11)
[2017-09-22] MEDS: Nadolol 40 MG TAB PO SCH (09:12)
[2017-09-22 09:21] LABS: ALT (SGPT) 13 U/L (8-55); AST (SGOT) 21 U/L (5-34); Alkaline Phosphatase 32 U/L (40-150); Anion Gap 17 mmol/L (10-20); BUN (Urea Nitrogen) 21 mg/dL (8.4-25.7); Bilirubin, Total 4.1 mg/dL (0.2-1.2); Calc. Creatinine Clearance 53 mL/min (70-130); Calcium 9.6 mg/dL (7.8-10.44); Carbon Dioxide 19 mmol/L (23-31); Chloride 104 mmol/L (98-107); Estimated GFR-MDRD 53; Glucose 197 mg/dL (83-110); Potassium 3.6 mmol/L (3.5-5.1); Sodium 136 mmol/L (136-145)
--- NOTE | 2017-09-22 13:51 | MRI ---
MRI ABDOMEN WITH AND WITHOUT CONTRAST: HISTORY: Multiple hepatic masses seen on CT examination. COMPARISON: CT from 09/18/2017 and MRI from 09/20/2017. FINDINGS: There is large right and small left layering pleural effusion. Moderate ascites. Extensive hepatic cirrhosis with a nodular contour. The spleen is not significantly enlarged. The p ortal vein is patent. No significant varices. Within the hepatic parenchyma, multiple T2 hyperintense foci without arterial phase hyperenhancement. There is a confluent area of scarring in hepatic segment 4V. This has some enhancement on the dick yed phase scan. There are multiple nonenhancing T2 hyperintense foci suggesting cysts. There are al so numerous small foci of T2 signal alteration throughout the liver parenchyma, without solid compone nt enhancement, suggesting regenerative nodules. The spleen is unremarkable. There are enumerable cystic foci of the pancreatic head. There is mild dilatation of the main pancreatic duct. Prior right nephrectomy. The left kidney has a small superior pole cyst. There is abnormal increase d T2 signal throughout the spine without any solid mass enhancement. IMPRESSION: 1. Extensive signal alteration throughout the liver without solid mass enhancement, suggesting numer ous regenerative nodules. There are also small cysts, as well as areas of confluent fibrosis. No ev idence of hepatocellular carcinoma. There is, however, extensive cirrhosis. 2. Large right and left pleural effusion. 3. Moderate ascites. 4. No splenomegaly or evidence of portal hypertension. The main portal vein is patent. 5. Enumerable cystic foci throughout the pancreatic body, which can be seen with chronic pancreatiti s and/or innumerable intraductal papillary mucinous neoplasms. 6. Extensive abnormal T2 signal throughout the spine, which can be seen with red marrow reactivation . Clinical correlation is advised. 7. 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 8. Mild hyperenhancement of the peritoneum over the left paracolic gutter, which can be seen with pe ritonitis. POS: [facility]
--- NOTE | 2017-09-22 16:33 | PDOC.PN ---
- Subjective Encounter Start Date: 09/22/17 Encounter Start Time: 14:00 Subjective: no new complaints -: Had MRI done this am - Objective Resuscitation Status: Resuscitation Status DNR:Do Not Resuscitate MAR Reviewed: Yes Vital Signs & Weight: Vital Signs (12 hours) Temp Pulse Resp BP Pulse Ox 09/22/17 12:00 97.8 F 85 20 97/66 92 L 09/22/17 08:00 98.0 F 84 20 Weight Weight 198 lb I&O: 09/21/17 09/22/17 09/23/17 06:59 06:59 06:59 Intake Total 1100 Output Total 250 100 Balance 850 -100 Result Diagrams: 09/22/17 08:50 09/22/17 08:50 Additional Labs: Accuchecks 09/22/17 09/22/17 09/21/17 11:10 05:27 20:36 POC Glucose 205 H 164 H 170 H 09/21/17 16:55 POC Glucose 166 H Phys Exam - Physical Examination HEENT: PERRLA, moist MMs Neck: no JVD, supple Respiratory: no wheezing, no rales Cardiovascular: RRR, no significant murmur Gastrointestinal: soft, positive bowel sounds ascites++ Musculoskeletal: no edema, pulses present Neurological: non-focal, moves all 4 limbs Dx/Plan (1) Ascites Code(s): R18.8 - OTHER ASCITES Status: Acute Qualifiers: Ascites type: due to alcoholic cirrhosis Qualified Code(s): K70.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 (2) Cirrhosis Code(s): K74.60 - UNSPECIFIED CIRRHOSIS OF LIVER Status: Chronic Qualifiers: Hepatic cirrhosis type: alcoholic cirrhosis Ascites presence: with ascites Qualified Code(s): K70.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 (3) HTN (hypertension) Code(s): I10 - ESSENTIAL (PRIMARY) HYPERTENSION Status: Chronic Qualifiers: Hypertension type: essential hypertension Qualified Code(s): I10 - Essential (primary) hypertension (4) Dyslipidemia Code(s): E78.5 - HYPERLIPIDEMIA, UNSPECIFIED Status: Chronic (5) Dementia Code(s): F03.90 - UNSPECIFIED DEMENTIA WITHOUT BEHAVIORAL DISTURBANCE Status: Chronic Qualifiers: Dementia type: Alzheimer's disease Dementia behavioral disturbance: without behavioral disturbance (6) YARY (acute kidney injury) Code(s): N17.9 - ACUTE KIDNEY FAILURE, UNSPECIFIED Status: Resolved - Plan MRI results reviewed, has cirrhosis with ascites -: optimizing meds, watch for sbp -: hold meds only if sbp <80 -: is on nadolol, spironolactone -: dc plan in 24hrs * . Review of Systems - Medications/Allergies Allergies/Adverse Reactions: Allergies Allergy/AdvReac Type Severity Reaction Status Date / Time No Known Allergies Allergy Verified 09/18/17 14:26 Medications: Current Medications Acetaminophen (Tylenol) 650 mg PO Q4H PRN PRN Reason: Headache/Fever or Pain Al Hydroxide/Mg Hydroxide (Maalox) 30 ml PO Q6H PRN PRN Reason: Heartburn or Indigestion Calcium Carbonate (Tums) 1,000 mg PO Q4H PRN PRN Reason: Heartburn or Indigestion Dextrose/Water (Dextrose 50%) 25 gm SLOW IVP PRN PRN PRN Reason: Hypoglycemia Enoxaparin Sodium (Lovenox) 30 mg SC 0900 [facility] Last Admin: 09/22/17 09:11 Dose: 30 mg Furosemide (Lasix) 40 mg SLOW IVP 0600,1400 [facility] Last Admin: 09/22/17 14:42 Dose: 40 mg Glucagon (Glucagon) 1 mg IM PRN PRN PRN Reason: Hypoglycemia Guaifenesin/Dextromethorphan (Robitussin Dm) 15 ml PO Q4H PRN PRN Reason: Cough Dextrose/Water (D5w) 1,000 mls @ 0 mls/hr IV .Q0M PRN; As Directed PRN Reason: Hypoglycemia Insulin Human Lispro (Humalog) 0 units SC .MILD SLIDING SCALE PRN PRN Reason: Mild Correctional Scale Last Admin: 09/22/17 05:43 Dose: 2 unit Magnesium Hydroxide (Milk Of Magnesium) 30 ml PO DAILYPRN PRN PRN Reason: Constipation Nadolol (Corgard) 40 mg PO DAILY [facility] Last Admin: 09/22/17 09:12 Dose: 40 mg Senna (Senokot) 2 tab PO HSPRN PRN PRN Reason: Constipation Spironolactone (Aldactone) 25 mg PO QAM-WM [facility] Last Admin: 09/22/17 09:12 Dose: 25 mg
--- NOTE | 2017-09-22 17:51 | PRG ---
DATE OF SERVICE: 09/22/2017 SUBJECTIVE: The patient is feeling good. He is eating well, having good bowel movements. No compla ints. OBJECTIVE: VITAL SIGNS: Temperature 97.8, pulse 85, respiratory rate 20, blood pressure 97/66. CHEST: Clear. CARDIOVASCULAR: Regular rate and rhythm. ABDOMEN: Soft, protuberant without rebound or guarding. Bowel sounds are present. Positive fluid w ave. RECTAL: Deferred. EXTREMITIES: Show no edema. LABORATORY DATA: Shows hemoglobin 12.2, hematocrit 35.7. Chemistries show a creatinine of 1.29, BUN 21, glucose 164, total bilirubin 4.1. IMAGING: MRI showed no masses, but there were multiple regenerative nodules and ascites. ASSESSMENT: 1. Cirrhosis. 2. Ascites. 3. Innumerable cystic foci within the pancreatic body - chronic pancreatitis versus intraductal moises llary mucinous neoplasm. RECOMMENDATIONS: 1. Continue Lasix. 2. Add Aldactone. 3. Continue nadolol. 4. Follow up with GI as an outpatient for management of cirrhosis and ascites.
[2017-09-23] MEDS ORDERED: Furosemide 40 MG TAB PO SCH (07:30)
[2017-09-23] MEDS: Nadolol 40 MG TAB PO SCH (08:00)
[2017-09-23] MEDS: Enoxaparin Sodium 30 MG/0.3 ML SYRINGE SC SCH (08:00)
--- NOTE | 2017-09-23 11:10 | PDOC.PN ---
- Subjective Encounter Start Date: 09/23/17 Encounter Start Time: 11:30 Subjective: No SOB. Ambulating ok with PT. Ready to go home. - Objective Resuscitation Status: Resuscitation Status DNR:Do Not Resuscitate MAR Reviewed: Yes Vital Signs & Weight: Vital Signs (12 hours) Temp Pulse Resp BP Pulse Ox 09/23/17 08:00 97.7 F 75 18 100/65 94 L Weight Weight 198 lb I&O: 09/22/17 09/23/17 09/24/17 06:59 06:59 06:59 Intake Total 1680 240 Output Total 100 Balance -100 1680 240 Result Diagrams: 09/22/17 08:50 09/22/17 08:50 Additional Labs: Accuchecks 09/23/17 09/22/17 09/22/17 06:11 21:19 16:31 POC Glucose 158 H 184 H 187 H 09/22/17 11:10 POC Glucose 205 H Phys Exam - Physical Examination Constitutional: NAD HEENT: moist MMs Respiratory: no wheezing, no rales, no rhonchi Cardiovascular: RRR Gastrointestinal: soft, positive bowel sounds moderate distension Musculoskeletal: no edema Neurological: non-focal, moves all 4 limbs Psychiatric: normal affect, A&O x 3 Dx/Plan (1) Ascites Code(s): R18.8 - OTHER ASCITES Status: Acute Qualifiers: Ascites type: due to alcoholic cirrhosis Qualified Code(s): K70.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 (2) Cirrhosis Code(s): K74.60 - UNSPECIFIED CIRRHOSIS OF LIVER Status: Chronic Qualifiers: Hepatic cirrhosis type: alcoholic cirrhosis Ascites presence: with ascites Qualified Code(s): K70.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 (3) Dementia Code(s): F03.90 - UNSPECIFIED DEMENTIA WITHOUT BEHAVIORAL DISTURBANCE Status: Chronic Qualifiers: Dementia type: Alzheimer's disease Dementia behavioral disturbance: without behavioral disturbance (4) Dyslipidemia Code(s): E78.5 - HYPERLIPIDEMIA, UNSPECIFIED Status: Chronic (5) HTN (hypertension) Code(s): I10 - ESSENTIAL (PRIMARY) HYPERTENSION Status: Chronic Qualifiers: Hypertension type: essential hypertension Qualified Code(s): I10 - Essential (primary) hypertension (6) YARY (acute kidney injury) Code(s): N17.9 - ACUTE KIDNEY FAILURE, UNSPECIFIED Status: Resolved (7) Pancreatic mass Status: Acute Comment: multiple cysts of pancreas, chronic pancreatitis vs. cancer, needs outpatient GI followup - Plan cont current plan of care, PT/OT plan for d/c home today -: F/u with GI outpatient -: Starting Spironolactone and Lasix per GI recommendations * . - Discharge Day Encounter end time: 11:50
--- NOTE | 2017-09-23 12:46 | DIS ---
PRIMARY CARE PHYSICIAN: Dr. Minor. ADMISSION DIAGNOSES: 1. Possible liver mets on CT. 2. Ascites. 3. Hypertension. 4. Diabetes mellitus type 2. 5. Dyslipidemia. 6. Early dementia. DISCHARGE DIAGNOSES: 1. Extensive cirrhosis of the liver. 2. Ascites. 3. Multiple cystic foci throughout the pancreas concerning for chronic pancreatitis versus pancreati c cancer. 4. Diabetes mellitus type 2. 5. Hypertension. 6. Dyslipidemia. 7. Acute kidney injury, resolved. PROCEDURES: 1. CT of the abdomen and pelvis without contrast showing a large right and small left layering pleur al effusions and abnormal nodular appearance to the liver concerning for multiple masses. Moderate t o large volume ascites. 2. Ultrasound of the abdomen showing low volume ascites, right pleural effusion, liver abnormal with heterogeneity and nodular appearance and post cholecystectomy. 3. Ultrasound guided paracentesis with removal of 3 liters of blood tinged ascitic fluid. 4. MRI of the abdomen showing extensive cirrhotic change to the liver with numerous regenerative nod ules, large right and left pleural effusions, moderate ascites and innumerable cystic foci throughout the pancreatic body consistent with chronic pancreatitis versus intraductal papillary mucinous neopl asm. CONSULTATIONS: 1. Nephrology, Dr. Singh. 2. Gastroenterology, Dr. Stephens and Dr. Beltran. PERTINENT LABORATORY DATA: Ascitic fluid without malignant cells, just reactive mesothelial cells. Blood sugars remaining in the mid to high 100s off of any oral hypoglycemics. Creatinine 1.6 on admi ssion, down to 1.29 at discharge. Hepatitis serologies all negative for infection. SUMMARY OF HOSPITAL COURSE: This is an 86-year-old white male, who was noted to have low blood press ures at home, went to see his primary care doctor, feeling dizzy at times and also had abdominal dist ention. He was referred to the ER, where a CAT scan saw possible metastatic lesions to his liver. T he patient was admitted. He also noted to have increased creatinine. Nephrology and Gastroenterolog y were consulted. The patient had imaging as above. He has evidence of significant heavy drinking i n the past, but no heavy drinking in the last 20 years. No alcohol at all for the last 2 months. He had a negative viral workup for infection. Ultrasound was consistent with cirrhosis of the liver. Patient had an MRI, which confirmed no evidence of cancer in the liver, just significant cirrhosis, b ut he did have many small cystic lesions throughout the pancreas consistent with chronic pancreatitis versus a neoplasm. The patient was doing well after initiation of diuretics in the hospital. He di d have his medications adjusted. Blood pressure is doing well. He is ambulating with physical thera py and ready to go home. DISCHARGE MANAGEMENT: Discharged home. Follow up with Dr. Minor in the next week and with Dr. Beltarn or Dr. Stephens in next 2-3 weeks. ACTIVITY: As tolerated. He will have home health for physical therapy. DIET: Healthy heart, low sodium diet, carbohydrate restricted DISCHARGE MEDICATIONS: 1. Furosemide 40 mg daily, 30 tablets dispensed. 2. Nadolol 40 mg daily, 30 caps dispensed. 3. Spironolactone 25 mg daily, 30 tablets dispensed. 4. Resume multivitamin daily. 5. Amantadine one tablet twice a day. 6. Donepezil 1 tablet daily. The patient is to stop all his other home medications.
[2017-09-23 13:06] VITALS: BP 110/71; TEMP 98
== END 2017-09-23 13:43 | disposition home health service (06) | DRG 433 ==
LOC: ERS 10:40 → T4-B 13:09
PROVIDERS: ADMIT Internal Medicine; ATTEND Internal Medicine
PROC: 0W9G3ZX Drainage of Peritoneal Cavity, Percutaneous Approach, Diagnostic (ICD-10-PCS; principal; 2017-09-18)
DX: K70.31 Alcoholic cirrhosis of liver with ascites (principal); N17.9 Acute kidney failure, unspecified; K86.2 Cyst of pancreas; I95.9 Hypotension, unspecified; E11.9 Type 2 diabetes mellitus without complications; G30.9 Alzheimer's disease, unspecified; F02.80 Dementia in other diseases classified elsewhere, unspecified severity, without behavioral disturbance, psychotic disturbance, mood disturbance, and anxiety; I10 Essential (primary) hypertension; E78.5 Hyperlipidemia, unspecified; Z96.643 Presence of artificial hip joint, bilateral; F10.10 Alcohol abuse, uncomplicated; Z79.82 Long term (current) use of aspirin; Z66 Do not resuscitate; Z90.5 Acquired absence of kidney
CPT/HCPCS: 36415; 36416; 49083; 71045; 74176; 74181; 74183; 76700; 80048; 80053; 80074; 82042; 82105; 82378; 82945; 83615; 83880; 84157; 85025; 85060; 85610; 85730; 86301; 87070; 87205; 88112; 88305; 89051; 93005; 93306; G8978-GP-CM; G8979-GP-CK; J1650; J1940; P9047

== ENCOUNTER 2017-10-12 17:15 | Inpatient (IN) | payer MEDICARE, BC ==
[2017-10-12 18:18] LABS: #Eosinphils 0.2 thou/uL (0.0-0.7); #Lymphocytes 1.4 thou/uL (1.20-3.40); #Monocytes 0.8 thou/uL (0.11-0.59); #Neutrophils 7.2 thou/uL (1.40-6.50); %Basophils 0.2 % (0.0-1.0); %Eosinophils 1.9 % (0.0-10.0); %Lymphocytes 14.8 % (21.0-51.0); %Monocytes 7.8 % (0.0-10.0); %Neutrophils 75.2 % (42.0-75.0); Hemoglobin 13.1 g/dL (14.0-18.0); Mean Corpuscular HGB CONC 32.5 g/dL (32.0-36.0); Mean Corpuscular Hemoglobin 31.8 pg (27.0-31.0); Mean Corpuscular Volume 97.8 fl (80.0-94.0); Mean Platelet Volume 9.2 fL (7.4-10.4); Platelet Count 157 thou/uL (130-400); RBC Distribution Width 14.9 % (11.5-14.5); Red Blood Cell (RBC) Count 4.12 mill/uL (4.70-6.10); White Blood Cell (WBC) Count 9.6 thou/uL (4.8-10.8)
[2017-10-12] MEDS ORDERED: Azithromycin 500 MG VIAL ONE (18:21)
[2017-10-12] MEDS ORDERED: cefTRIAXone\\ROCEPHIN 2 GM in Sodium Chloride 0.9% 100 ML IVPB ONE (18:30)
[2017-10-12 18:42] LABS: ALT (SGPT) 16 U/L (8-55); AST (SGOT) 22 U/L (5-34); Albumin 3.5 g/dL (3.4-4.8); Alkaline Phosphatase 36 U/L (40-150); Anion Gap 22 mmol/L (10-20); BUN (Urea Nitrogen) 104 mg/dL (8.4-25.7); Bilirubin, Total 2.8 mg/dL (0.2-1.2); CK (CPK) 33 U/L (30-200); Calc. Creatinine Clearance 0 mL/min (70-130); Calcium 9.5 mg/dL (7.8-10.44); Carbon Dioxide 17 mmol/L (23-31); Chloride 103 mmol/L (98-107); Estimated GFR-MDRD 19; Globulin 2.1 g/dL (2.4-3.5); Glucose 196 mg/dL (83-110); Potassium 3.8 mmol/L (3.5-5.1); Protein, Total 5.6 g/dL (5.8-8.1); Sodium 138 mmol/L (136-145)
[2017-10-12 18:47] LABS: CKMB 1.9 ng/mL (0-6.6); Troponin I 0.149 ng/mL (< 0.028)
[2017-10-12 19:04] LABS: INR-International Normal Ratio 1.3; PTT 27.7 SEC (22.9-36.1); Prothrombin Time 16.7 SEC (12.0-14.7)
--- NOTE | 2017-10-12 19:10 | RAD ---
PORTABLE CHEST: HISTORY: Shortness of breath. Difficulty breathing. Mental status change. COMPARISON: 09/18/2017 FINDINGS: Evidence of new infiltrate in the right lower lobe with small right effusion. There is also blunting of the CP angle, indicating a tiny left effusion. The upper lung zones are clear. No evidence of v ascular congestion. Heart size is upper normal and stable. IMPRESSION: Right lower lobe infiltrate and atelectasis with right effusion. Tiny left effusion. POS: [facility]
--- NOTE | 2017-10-12 19:39 | CT ---
BRAIN CT WITHOUT IV CONTRAST: HISTORY: An 86-year-old male with a history of altered mental status, weakness, and difficulty breathing. FINDINGS: Atrophy and chronic white matter ischemic changes are noted bilaterally. No focal mass or midline sh ift. Small left periventricular areas of lacunar infarcts. No mass or bleed or other acute process. IMPRESSION: Atrophy and chronic white matter ischemic change. No mass or bleed. Bilateral maxillary sinus mucos al disease. POS: [facility]
[2017-10-12] MEDS ORDERED: Piperacillin/Tazobactam 4.5 GM VIAL ONE (21:52)
[2017-10-12 22:22] LABS: Troponin I 0.106 ng/mL (< 0.028)
[2017-10-12] MEDS ORDERED: Ondansetron HCl/PF 4 MG/2 ML Vial IVP PRN (23:20)
[2017-10-12] MEDS ORDERED: Acetaminophen 325 MG TAB PO PRN (23:20)
[2017-10-12] MEDS ORDERED: Ondansetron ODT 4 MG TAB PO PRN (23:20)
[2017-10-12] MEDS ORDERED: Bisacodyl 5 MG TAB PO PRN (23:20)
[2017-10-12] MEDS ORDERED: Acetaminophen 650 MG Suppository PR PRN (23:20)
[2017-10-12] MEDS ORDERED: Famotidine 20 MG TAB PO SCH (23:30)
[2017-10-12] MEDS ORDERED: Docusate 100 MG CAP PO SCH (23:30)
[2017-10-12] MEDS: Piperacillin/Tazobactam 3.375 GM in Sodium Chloride 0.9% 100 ML IVPB SCH (23:59)
--- NOTE | 2017-10-13 02:23 | HP ---
PRIMARY CARE PHYSICIAN: Duke Minor MD CHIEF COMPLAINT: Decreased blood pressure and energy level and decreased p.o. intake. HISTORY OF PRESENT ILLNESS: This is an 86-year-old white male who was recently in the hospital and d iagnosed with cirrhosis of the liver and ascites along with a cystic foci of the pancreas. He was di scharged home and follow with Dr. Beltran, has an appointment scheduled for next week. states that he has not been eating much at home and when his p.o. intake has been decreasing, his belly has also continued to swell. The patient had just been taking minimal sips of fluids in the past few days, h as had decreased energy level. States he feels full because his stomach is so distended. He came to the emergency room today, was noted to have a right lower lobe pneumonia on chest x-ray with a justin l white count given his recent hospitalization and being admitted for IV antibiotics for healthcare a cquired pneumonia. He did not receive IV antibiotics last time, has no specific Pseudomonas risk fac tors, so we will treat him with Zosyn for now. PAST MEDICAL HISTORY: 1. Hypertension. 2. Diabetes mellitus type 2. 3. Dyslipidemia. 4. Single kidney with chronic renal insufficiency. 5. Early dementia. 6. Extensive cirrhosis of the liver. 7. Ascites. 8. 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 PAST SURGICAL HISTORY: 1. Bilateral hip replacement. 2. Cholecystectomy. SOCIAL HISTORY: Patient was a heavy drinker for 40 years and a wider drinker for 20 years or so and then quit alcohol completely a couple of months before, his last admission. No tobacco or illicit dr ug use. Lives at home with his . FAMILY HISTORY: Mother of cirrhosis in her 70s and was an alcoholic. Father of dementia a nd its complications in his 70s. ALLERGIES: No known drug allergies. CURRENT MEDICATIONS: 1. Furosemide 40 mg daily. 2. Nadolol 40 mg daily. 3. Spironolactone 25 mg daily. 4. Multivitamin daily. 5. Amantadine one tablet twice a day. 6. Donepezil 1 tablet daily. REVIEW OF SYSTEMS: Constitutional: No fevers or chills, just generalized weakness. Eyes: No doubl e vision or blurred vision. ENT: No congestion, drainage, or sore throat. Pulmonary: No coughing, wheezing, or shortness of breath. There was some note in the emergency room physician's note that t here was mention of some shortness of breath at home, he and deny that now. Minimal cough. Unc ertain length of time, it has been going on per the . Cardiac: No chest pain, palpitations, abd ominal distention as per HPI. No pain, no nausea or vomiting, no diarrhea or constipation. Genitour inary: No dysuria or hematuria. Musculoskeletal: No muscle aches, joint pains. Skin: No rashes o r lesions noted. Neurologic: No numbness, tingling, or focal weakness. PHYSICAL EXAMINATION: VITAL SIGNS: Blood pressure 108/61, pulse 59, respirations 21, temperature 97.0, O2 sat 99% on room air. GENERAL: This is a well-developed, thin, frail, elderly white male, in no apparent distress. HEENT: Eyes: Pupils equal, round, react to light. Oropharynx clear without lesions, erythema, or e xudate. He does have very dry mucous membranes. NECK: Supple. No lymphadenopathy, no thyroid nodules or enlargement, no JVD. HEART: Regular rate and rhythm. No murmurs, rubs, or gallops. LUNGS: He does have some occasional crackles in the right base, though decent air movement throughou t. No increased work of breathing. ABDOMEN: Distended, tense, nontender, positive fluid wave. He does have a caput medusae venous stru cture anteriorly. EXTREMITIES: No clubbing, cyanosis, or edema. SKIN: No rashes or lesions noted. NEUROLOGIC: He has intact sensation in all extremities. Intact deep tendon reflexes in all extremit ies. No focal neurologic findings. LABORATORY DATA: CBC with a normal white blood cell count 9.6, hemoglobin 13.1, platelet count justin l. Coagulation profile: INR of 1.3. Complete metabolic panel was notable for carbon dioxide of 17, anion gap 22, BUN of 104, creatinine of 3.14 which is up from his baseline of 1.05 to 1.29, glucose 196. Total bilirubin 2.8, which is down from 4 on his last admission. Albumin is 3.5. The rest of his LFTs are grossly normal. Troponin is indeterminate at 0.149. Ammonia level was low at 16. X-RAY: I did review the chest x-ray along with the radiologist's report, there is a new infiltrate i n the right lower base along with bilateral very small pleural effusions and a CT scan of the brain s hows no acute abnormality, just some chronic atrophy and white matter changes. ASSESSMENT AND PLAN: 1. Acute healthcare-acquired pneumonia. We will put patient on Zosyn. He already got doses of Zosy n, Levaquin, and azithromycin in the emergency room. Blood cultures have been drawn. 2. Cirrhosis of the liver with tense ascites. We will consult Dr. Beltran likely will need another tap . 3. Acute on chronic renal failure, looks to be significantly prerenal. We will give fluids as sky ated with his ascites and pleural effusions. 4. Gastrointestinal prophylaxis, Pepcid twice a day. 5. Deep venous thrombosis prophylaxis. The patient is on sequential compression devices while in be d. CODE STATUS: I did discuss with the patient. He stated he is a FULL CODE. Should he be incapacitat ed, his would be his medical decision maker.
[2017-10-13 05:27] LABS: #Eosinphils 0.2 thou/uL (0.0-0.7); #Lymphocytes 1.2 thou/uL (1.20-3.40); #Monocytes 0.9 thou/uL (0.11-0.59); #Neutrophils 6.4 thou/uL (1.40-6.50); %Eosinophils 1.9 % (0.0-10.0); %Lymphocytes 13.5 % (21.0-51.0); %Monocytes 10.1 % (0.0-10.0); %Neutrophils 74.4 % (42.0-75.0); Mean Corpuscular HGB CONC 33.8 g/dL (32.0-36.0); Mean Corpuscular Hemoglobin 32.6 pg (27.0-31.0); Mean Corpuscular Volume 96.6 fl (80.0-94.0); Mean Platelet Volume 9.2 fL (7.4-10.4); Platelet Count 133 thou/uL (130-400); Red Blood Cell (RBC) Count 3.67 mill/uL (4.70-6.10); White Blood Cell (WBC) Count 8.6 thou/uL (4.8-10.8)
[2017-10-13 05:44] LABS: Anion Gap 21 mmol/L (10-20); BUN (Urea Nitrogen) 92 mg/dL (8.4-25.7); Calc. Creatinine Clearance 23 mL/min (70-130); Calcium 8.7 mg/dL (7.8-10.44); Carbon Dioxide 15 mmol/L (23-31); Chloride 105 mmol/L (98-107); Estimated GFR-MDRD 21; Glucose 149 mg/dL (83-110); Potassium 3.7 mmol/L (3.5-5.1); Sodium 137 mmol/L (136-145)
[2017-10-13] MEDS: Piperacillin/Tazobactam 3.375 GM in Sodium Chloride 0.9% 100 ML IVPB SCH ×3 (06:51→18:18)
[2017-10-13] MEDS: Docusate 100 MG CAP PO SCH ×2 (09:30→21:12)
[2017-10-13] MEDS: Famotidine 20 MG TAB PO SCH (09:30)
--- NOTE | 2017-10-13 09:32 | PDOC.PN ---
- Subjective Encounter Start Date: 10/13/17 Encounter Start Time: 12:30 Subjective: Patient feeling a bit better now. No cough last night. - Objective Resuscitation Status: Resuscitation Status FULL:Full Resuscitation MAR Reviewed: Yes Vital Signs & Weight: Vital Signs (12 hours) Temp Pulse Resp BP BP Pulse Ox 10/13/17 07:30 97.6 F 85 24 H 109/59 L 93 L 10/13/17 04:00 97.5 F L 57 L 19 92/55 L 96 10/13/17 03:10 59 L 18 94 L 10/12/17 23:00 97.6 F 58 L 18 108/56 L 95 I&O: 10/12/17 10/13/17 10/14/17 06:59 06:59 06:59 Intake Total 200 Output Total 1 Balance 199 Result Diagrams: 10/13/17 03:56 10/13/17 03:56 Phys Exam - Physical Examination Constitutional: NAD HEENT: moist MMs Respiratory: no wheezing, no rales, no rhonchi Cardiovascular: RRR Gastrointestinal: soft, positive bowel sounds Musculoskeletal: no edema Neurological: non-focal, moves all 4 limbs Psychiatric: normal affect, A&O x 3 Dx/Plan (1) Pneumonia Code(s): J18.9 - PNEUMONIA, UNSPECIFIED ORGANISM Status: Acute Qualifiers: Pneumonia type: due to unspecified organism Laterality: right Lung location: lower lobe of lung Qualified Code(s): J18.1 - Lobar pneumonia, unspecified organism Comment: On Zosyn for healthcare acquired pneumonia, will add metronidazole for possible aspiration as well due to location and weakness/dementia, speech therapy eval of swallow (2) Acute on chronic renal failure Code(s): N17.9 - ACUTE KIDNEY FAILURE, UNSPECIFIED; N18.9 - CHRONIC KIDNEY DISEASE, UNSPECIFIED Status: Acute Qualifiers: Chronic kidney disease stage: stage 2 (mild) Comment: prerenal, give gentle fluids (3) Ascites Code(s): R18.8 - OTHER ASCITES Status: Acute Qualifiers: Ascites type: due to alcoholic cirrhosis Qualified Code(s): K70.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 (4) Pancreatic mass Status: Acute Comment: multiple cysts of pancreas, chronic pancreatitis vs. cancer, needs outpatient GI followup (5) Cirrhosis Code(s): K74.60 - UNSPECIFIED CIRRHOSIS OF LIVER Status: Chronic Qualifiers: Hepatic cirrhosis type: alcoholic cirrhosis Ascites presence: with ascites Qualified Code(s): K70.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 (6) Dementia Code(s): F03.90 - UNSPECIFIED DEMENTIA WITHOUT BEHAVIORAL DISTURBANCE Status: Chronic Qualifiers: Dementia type: Alzheimer's disease Dementia behavioral disturbance: without behavioral disturbance (7) Dyslipidemia Code(s): E78.5 - HYPERLIPIDEMIA, UNSPECIFIED Status: Chronic (8) HTN (hypertension) Code(s): I10 - ESSENTIAL (PRIMARY) HYPERTENSION Status: Chronic Qualifiers: Hypertension type: essential hypertension Qualified Code(s): I10 - Essential (primary) hypertension - Plan cont current plan of care, continue antibiotics, PT/OT, DVT proph w/SCDs * . - Discharge Day Encounter end time: 12:40
[2017-10-13] MEDS: Sodium Chloride 0.9% 1,000 ML IV SCH (12:01)
[2017-10-13] MEDS ORDERED: Albumin 25% 25 GM/100 ML BOT IVPB SCH ×2 (12:45→18:00)
--- NOTE | 2017-10-13 15:54 | RAD ---
MODIFIED BARIUM SWALLOW IN THE PRESENCE OF A SPEECH PATHOLOGIST: Date: 10/13/17 HISTORY: Dysphagia, oropharyngeal phase. Feeding difficulties. EXPOSURE: 3.5 minutes. 1.73 Gy*cm^2. FINDINGS: In the presence of a speech pathologist, the patient was administered thin liquid, nectar-thick, obi y-thick, pudding, and solid consistencies. There is penetration with aspiration with the thin liquid consistency. There is premature spillage in to the piriform sinuses and vallecula with the nectar and honey-thick liquids, as well as the pudding consistency. Please refer to speech pathology report for feeding recommendation. IMPRESSION: Please refer to speech pathologist's report for feeding recommendations. POS: [facility]
[2017-10-13] MEDS: Albumin 25% 25 GM/100 ML BOT IVPB SCH ×2 (16:10→22:15)
[2017-10-13 16:21] LABS: Bilirubin Small (Negative); Blood, Urine Negative (Negative); Clarity CLEAR (Clear); Glucose, Urine (Dipstick) Negative (Negative); Leukocyte Negative (Negative); Nitrite Negative (Negative); Protein, Urine (Dipstick) Negative (Neg-Trace)
[2017-10-13 16:25] LABS: Bacteria/HPF None Seen HPF (None Seen); Crystals/HPF RARE STARCH HPF (Negative); Hyaline Casts/LPF NONE SEEN LPF (0-3 Hyaline); RBC/HPF None Seen HPF (0-3); Squamous Epithelial 0-3 HPF (0-3); WBC/HPF None Seen HPF (0-3)
[2017-10-13 16:57] LABS: Creatinine, Urine 102.82 mg/dL (63-166); Sodium, Urine Less than 20 mmol/L (Not Available)
--- NOTE | 2017-10-13 18:24 | CON ---
DATE OF CONSULTATION: 10/13/2017 HISTORY OF PRESENT ILLNESS: Mr. Martínez is an 86-year-old white male with known history of cirrhosis of the liver, history of pancreatic lesions, ascites, and we are now consulting for his acute kidney injury. I saw this patient previously for an acute kidney injury, improved with IV hydration. Of i nterest, this patient has decreased p.o. intake, has been on diuretics and now admitted for generaliz ed malaise and low blood pressure. I have decided to start this patient with salt poor albumin 25 gr ams IV q.6 hours, in addition agree with empiric volume repletion with this patient. A chest x-ray s howed right lower lobe pneumonia. A swallow study was done, which suggests he may be aspirating. MEDICATIONS: Medications of 10/13/2016 was reviewed. LABORATORY DATA: Laboratories of 10/13/2017, white count 8.6, hemoglobin 12. Sodium 137, potassium 3.7, chloride 105, carbon dioxide 15, BUN 92, creatinine 2.91, glucose 149, GFR 21 mL per minute, mg cium is 8.7. On 10/12/2017, BUN 104 and creatinine 3.14. On 09/19/2017, creatinine is 1.27. PHYSICAL EXAMINATION: VITAL SIGNS: Blood pressure is 114/64, heart rate 63, respiratory rate 16, temperature 97.2, pulse o x 97%. GENERAL: Awake, supine, comfortable, not in overt distress. SKIN: Adequate turgor. HEENT: Pinkish conjunctivae, anicteric sclerae. NECK: No neck mass, no carotid bruits, no JVD. LUNGS: Decreased breath sounds. HEART: Normal sinus rhythm. No murmur, no gallops, no rubs. ABDOMEN: Globular, soft, nontender, no masses. Positive for ascites. EXTREMITIES: No edema, no deformities. ASSESSMENT AND PLAN: 1. Acute kidney injury -- most likely a hemodynamically mediated renal dysfunction with a history of decreased p.o. intake and previous use of diuretics. Agree with gentle volume repletion. In additi on, I have added albumin 25 grams IV q.6 hours for x3 days. No indication for any dialytic intervent ion. Please note, this patient due to his comorbid problems, he is not a good dialysis candidate. 2. Aspiration pneumonia -- on empiric IV antibiotics. 3. Cirrhosis/end-stage liver disease. Continue supportive care. I had a discussion with the and the patient is not ready to consider hospice.
[2017-10-13] MEDS: metroNIDAZOLE 500 MG in Premix Bag 1 BAG IVPB SCH (21:12)
[2017-10-14] MEDS: Sodium Chloride 0.9% 1,000 ML IV SCH ×2 (00:31→17:55)
[2017-10-14] MEDS: Piperacillin/Tazobactam 3.375 GM in Sodium Chloride 0.9% 100 ML IVPB SCH ×4 (00:32→17:55)
[2017-10-14] MEDS: Albumin 25% 25 GM/100 ML BOT IVPB SCH ×4 (03:47→22:48)
--- NOTE | 2017-10-14 08:51 | PRG ---
DATE OF SERVICE: 10/14/2017 SERVICE: Renal Medicine. SUBJECTIVE: Mr. Martínez is an 86-year-old white male who was seen for an acute kidney injury that wa s secondary to a hemodynamically mediated renal dysfunction. His blood pressure was also low at that time. He is receiving gentle volume repletion at the same time supplemented with albumin infusion. This morning, he denies any chest pain or shortness of breath. However, he is confused. The family - - wishes to proceed with active treatment. OBJECTIVE: VITAL SIGNS: Blood pressure 107/62, heart rate 59, respiratory rate 20, temperature 97.4, pulse ox 9 2%. GENERAL: Noted to be awake, alert, comfortable, not in overt distress. SKIN: Adequate turgor. HEENT: He has pinkish conjunctivae, anicteric sclerae. NECK: No neck mass, no carotid bruits, no JVD. CHEST: No deformities. LUNGS: Clear breath sounds. No wheezing, no crackles. HEART: Normal sinus rhythm. No murmur, no gallops, no rubs. ABDOMEN: Globular, soft, nontender, no masses. EXTREMITIES: No edema, no deformities. MEDICATIONS: Of 10/14/2017 was reviewed. LABORATORY DATA: Of 10/13/2017, urinalysis specific gravity 1.020. Urine sodium less than 20, urine creatinine 102. On 10/13/2017, BUN 92, creatinine 2.91, potassium 3.7, hemoglobin 12, hematocrit 35 .5. ASSESSMENT AND PLAN: 1. Acute kidney injury - this is hemodynamically mediated renal dysfunction suggested by the urinaly sis. The urine sodium was also very low. Continue salt poor albumin and gentle volume repletion. P lease note, he was placed on diuretics at home. Holding off those diuretics. 2. Aspiration pneumonia, currently on IV antibiotics. 3. Cirrhosis/end-stage liver disease - family's wishes to pursue active treatment. We will recheck base met in a.m.
[2017-10-14 09:04] LABS: Anion Gap 17 mmol/L (10-20); BUN (Urea Nitrogen) 81 mg/dL (8.4-25.7); Calc. Creatinine Clearance 23 mL/min (70-130); Calcium 9.5 mg/dL (7.8-10.44); Carbon Dioxide 21 mmol/L (23-31); Chloride 106 mmol/L (98-107); Estimated GFR-MDRD 21; Glucose 176 mg/dL (83-110); Potassium 3.3 mmol/L (3.5-5.1); Sodium 141 mmol/L (136-145)
[2017-10-14] MEDS: metroNIDAZOLE 500 MG in Premix Bag 1 BAG IVPB SCH ×2 (09:35→20:51)
[2017-10-14] MEDS: Famotidine 20 MG TAB PO SCH (09:36)
[2017-10-14] MEDS: Docusate 100 MG CAP PO SCH ×4 (09:36→20:53)
--- NOTE | 2017-10-14 11:05 | CON ---
DATE OF CONSULTATION: 10/13/2017 GASTROENTEROLOGY CONSULTATION HISTORY OF PRESENT ILLNESS: Mr. Martínez is an 86-year-old man who was admitted around 3 weeks ago wi th anorexia and abdominal distention. Imaging showed a nodular liver consistent with cirrhosis. He did undergo paracentesis and was started on diuretics. He had an MRI of the abdomen to evaluate cysti c lesions of the pancreas, but no focal mass in the pancreas. No focal tumor was noted in the liver either. He was discharged on spironolactone, furosemide, and nadolol. He was readmitted yesterday w ith pneumonia and abdominal distention and acute renal failure. His creatinine was noted to increase from baseline of 1.29-3.14 yesterday. His diuretics have been held and he has been started on IV al bumin and some IV fluid as well. Patient has no acute complaints. No nausea or vomiting. His reports he has had some decreased appetite, which he has complained of feeling full. This may be due to the ascites. He has no abdominal pain. PAST MEDICAL HISTORY: Alcoholic cirrhosis, hypertension, diabetes mellitus type 2, dyslipidemia, dem entia, cystic lesions of the pancreas. PAST SURGICAL HISTORY: Hip replacement, cholecystectomy. FAMILY HISTORY: Positive for cirrhosis in his mother. SOCIAL HISTORY: He drank heavily for decades, but quit recently. No smoking or drugs. ALLERGIES: No known drug allergies. MEDICATIONS: Prior to admission furosemide 40 mg daily, spironolactone 25 mg daily, nadolol 40 mg da rocío, multivitamin, amantadine, donepezil. REVIEW OF SYSTEMS: Negative x10 systems reviewed except as stated in the history of present illness. PHYSICAL EXAMINATION: VITAL SIGNS: Temperature 97.2, pulse 63, blood pressure 114/64. GENERAL: He is in no acute distress. He is awake and alert. LUNGS: Clear to auscultation bilaterally. HEART: Regular rate and rhythm. ABDOMEN: Distended and nontender. His bowel sounds are active. He is dull to percussion. His abdo men is soft at this time, but certainly distended. His weight this admission was 190 pounds. Weight on 09/18/2017 was 198 pounds. LABORATORY DATA: Creatinine yesterday was 3.14, today 2.19. Bilirubin 2.8, AST 22, ALT 16, alkaline phosphatase 36, albumin 3.5. AFP was 2 on 09/18/2017. IMPRESSION: 1. Cirrhosis of the liver with ascites with significant abdominal distention and decreased oral inta ke. His weight is actually down 8 pounds compared to the previous hospitalization. We will continue to follow this clinically. If he develops further symptoms, then paracentesis could be considered; however, for now, we would hold off given his acute renal failure and in fact, he is already down 8 p ounds from previous admission. 2. Acute renal failure. Furosemide, spironolactone, and propranolol are currently held. He is rece iving IV albumin. We will continue to follow the trend the creatinine. 3. Alcoholic cirrhosis. 4. Multiple cystic lesions within the pancreatic body. This will not require further intervention a t this time. RECOMMENDATIONS: 1. Continue to hold for furosemide, Aldactone, and nadolol. 2. IV albumin. 3. Follow trend of the creatinine in response to these changes. 4. Weigh the patient daily. If his weight significantly increases, then paracentesis can be perform ed; however, he will need to be given IV albumin with that and likely should cap the fluid removal at 3 liters with close monitoring of his creatinine. For now, I would hold the paracentesis.
[2017-10-15] MEDS: Piperacillin/Tazobactam 3.375 GM in Sodium Chloride 0.9% 100 ML IVPB SCH ×4 (00:56→18:09)
[2017-10-15] MEDS: Albumin 25% 25 GM/100 ML BOT IVPB SCH ×4 (04:01→23:05)
[2017-10-15] MEDS: Sodium Chloride 0.9% 1,000 ML IV SCH (06:16)
[2017-10-15 06:19] LABS: Anion Gap 17 mmol/L (10-20); BUN (Urea Nitrogen) 71 mg/dL (8.4-25.7); Calc. Creatinine Clearance 24 mL/min (70-130); Calcium 9.7 mg/dL (7.8-10.44); Carbon Dioxide 22 mmol/L (23-31); Chloride 111 mmol/L (98-107); Estimated GFR-MDRD 23; Glucose 161 mg/dL (83-110); Potassium 3.1 mmol/L (3.5-5.1); Sodium 147 mmol/L (136-145)
[2017-10-15] MEDS: metroNIDAZOLE 500 MG in Premix Bag 1 BAG IVPB SCH ×2 (08:55→21:53)
[2017-10-15] MEDS: Famotidine 20 MG TAB PO SCH (09:01)
[2017-10-15] MEDS: Docusate 100 MG CAP PO SCH ×2 (09:05→21:47)
--- NOTE | 2017-10-15 13:24 | PRG ---
DATE OF SERVICE: 10/15/2017 Mr. Martínez has no complaints. PHYSICAL EXAMINATION: VITAL SIGNS: Temperature is 97, pulse 61, blood pressure 112/61. ABDOMEN: Protuberant. LABORATORY STUDIES: No CBC today. Sodium 147, potassium 3.1, BUN and creatinine are 71 and 2.69. ASSESSMENT: 1. 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 2. Pancreatic lesions possibly IPMN versus pseudocyst. These are not being worked up further second darrel to the fact that he is not a surgical candidate for pancreatic surgery or for chemotherapy, even if this was IPMN. 3. Acute on chronic renal failure. This may be hepatorenal. Last paracentesis on 09/18/2017 showed spontaneous bacterial peritonitis. RECOMMENDATIONS: I would retap for SBP at this time. Continue the albumin and IV fluids and continu e broad spectrum antibiotics.
[2017-10-15 15:10] LABS: BF Color Red; Body Fluid Source Ascites Body Fluid; Clarity Cloudy/Turbid (Clear); RBC Background Count 0.004; Tube # EDTA; WBC/NonHematic-Auto 770 /cumm
[2017-10-15 15:11] LABS: RBC Count-Automated 54000 /cumm
[2017-10-15 15:44] LABS: BF Segmented Neutrophils 5 %; Cell Count Non Hematic 9 %; Eosinophils 2 %; Lymphocytes 84 %
--- NOTE | 2017-10-15 16:05 | ULT ---
ULTRASOUND GUIDED PARACENTESIS 10/15/17 INDICATION: Ascites. TECHNIQUE: Informed consent was obtained. Right lower quadrant of the abdomen was marked following a preprocedur e ultrasound identifying the large pocket of fluid in the abdominal cavity. The site was prepped and draped in the usual sterile fashion. 1% lidocaine was administered overlying the subcutaneous tissue s. Small incision was made A 5 Dutch Yueh catheter was guided down into the peritoneal cavity. There was removal of 3200 mL of brownish to slightly blood tinged ascitic fluid. Patient tolerated the pro cedure well. IMPRESSION: Successful ultrasound guided paracentesis with removal of 3200 mL of peritoneal fluid. POS: [facility]
--- NOTE | 2017-10-15 16:52 | PDOC.PN ---
- Subjective Encounter Start Date: 10/15/17 Encounter Start Time: 16:50 Mr. Martínez was seen today in follow-up. He says he " doesn't know how he feels ". He denies abdominal pain, no chest pain or dyspnea. His says he may have eaten a little more today than in days past. - Objective Resuscitation Status: Resuscitation Status FULL:Full Resuscitation MAR Reviewed: Yes Vital Signs & Weight: Vital Signs (12 hours) Temp Pulse Resp BP Pulse Ox 10/15/17 14:42 97.5 F L 64 16 121/64 93 L 10/15/17 13:25 64 16 94 L 10/15/17 12:00 91 L 10/15/17 11:32 97.9 F 61 20 112/61 93 L 10/15/17 08:00 97.6 F 58 L 22 H 117/57 L 94 L Weight Admit Weight 190 lb Weight 190 lb I&O: 10/14/17 10/15/17 10/16/17 06:59 06:59 06:59 Intake Total 1295 2470 Balance 1295 2470 Result Diagrams: 10/13/17 03:56 10/15/17 05:53 Phys Exam - Physical Examination HEENT: PERRLA + rales at the bases, no wheezing or rhonchi Cardiovascular: RRR, no significant murmur, no rub Gastrointestinal: soft, non-tender, positive bowel sounds + distended Musculoskeletal: edema present trace pedal edema Dx/Plan (1) Pneumonia Code(s): J18.9 - PNEUMONIA, UNSPECIFIED ORGANISM Status: Acute Qualifiers: Pneumonia type: due to unspecified organism Laterality: right Lung location: lower lobe of lung Qualified Code(s): J18.1 - Lobar pneumonia, unspecified organism Comment: On Zosyn for healthcare acquired pneumonia, will add metronidazole for possible aspiration as well due to location and weakness/dementia, speech therapy eval of swallow (2) Acute on chronic renal failure Code(s): N17.9 - ACUTE KIDNEY FAILURE, UNSPECIFIED; N18.9 - CHRONIC KIDNEY DISEASE, UNSPECIFIED Status: Acute Qualifiers: Chronic kidney disease stage: stage 2 (mild) Comment: prerenal, give gentle fluids (3) Cirrhosis Code(s): K74.60 - UNSPECIFIED CIRRHOSIS OF LIVER Status: Chronic Qualifiers: Hepatic cirrhosis type: alcoholic cirrhosis Ascites presence: with ascites Qualified Code(s): K70.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 (4) HTN (hypertension) Code(s): I10 - ESSENTIAL (PRIMARY) HYPERTENSION Status: Chronic Qualifiers: Hypertension type: essential hypertension Qualified Code(s): I10 - Essential (primary) hypertension - Plan * Pneumonia- Probable aspiration- continue Zosyn- Flagyl is likely not adding much * HTN- blood pressure is stable . * Acute renal failure- improving- continue gentle hydration and salt poor albumin * Cirrhosis- patient has had therapeutic as well as diagnostic paracentesis- await further recommendations from GI * Replace Potassium
[2017-10-15] MEDS ORDERED: Potassium Chloride 20 MEQ TAB PO SCH (17:00)
[2017-10-15] MEDS: 1/2 NS w/KCL 20 mEq 1,000 ML IV SCH (19:02)
[2017-10-16] MEDS: Piperacillin/Tazobactam 3.375 GM in Sodium Chloride 0.9% 100 ML IVPB SCH ×4 (00:36→18:25)
[2017-10-16] MEDS: Albumin 25% 25 GM/100 ML BOT IVPB SCH ×2 (04:26→10:30)
[2017-10-16 05:58] LABS: Anion Gap 13 mmol/L (10-20); BUN (Urea Nitrogen) 57 mg/dL (8.4-25.7); Calc. Creatinine Clearance 28 mL/min (70-130); Calcium 9.5 mg/dL (7.8-10.44); Carbon Dioxide 24 mmol/L (23-31); Chloride 114 mmol/L (98-107); Estimated GFR-MDRD 27; Glucose 182 mg/dL (83-110); Sodium 148 mmol/L (136-145)
[2017-10-16 06:02] LABS: Potassium 2.8 mmol/L (3.5-5.1)
--- NOTE | 2017-10-16 07:25 | PDOC.PN ---
- Subjective Encounter Start Date: 10/16/17 Encounter Start Time: 07:23 Mr. Martínez was seen today in follow-up. He does not have any complaints, but appears very weak. - Objective Resuscitation Status: Resuscitation Status FULL:Full Resuscitation MAR Reviewed: Yes Vital Signs & Weight: Vital Signs (12 hours) Temp Pulse Resp BP Pulse Ox 10/16/17 00:00 98.0 F 69 16 96/51 L 94 L 10/15/17 20:00 97.4 F L 69 20 94 L 10/15/17 19:35 97.4 F L 69 20 135/69 95 Weight Admit Weight 190 lb Weight 190 lb I&O: 10/15/17 10/16/17 10/17/17 06:59 06:59 06:59 Intake Total 2470 1375 Output Total 150 Balance 2470 1225 Result Diagrams: 10/13/17 03:56 10/16/17 04:44 Phys Exam - Physical Examination HEENT: PERRLA Respiratory: no wheezing + rhonchi, and decreased breath sounds at the bases Cardiovascular: RRR, no significant murmur, no rub Gastrointestinal: soft, non-tender, positive bowel sounds + distended Musculoskeletal: edema present + pedal edema Dx/Plan (1) Pneumonia Code(s): J18.9 - PNEUMONIA, UNSPECIFIED ORGANISM Status: Acute Qualifiers: Pneumonia type: due to unspecified organism Laterality: right Lung location: lower lobe of lung Qualified Code(s): J18.1 - Lobar pneumonia, unspecified organism Comment: On Zosyn for healthcare acquired pneumonia, will add metronidazole for possible aspiration as well due to location and weakness/dementia, speech therapy eval of swallow (2) Acute on chronic renal failure Code(s): N17.9 - ACUTE KIDNEY FAILURE, UNSPECIFIED; N18.9 - CHRONIC KIDNEY DISEASE, UNSPECIFIED Status: Acute Qualifiers: Chronic kidney disease stage: stage 2 (mild) Comment: prerenal, give gentle fluids (3) Cirrhosis Code(s): K74.60 - UNSPECIFIED CIRRHOSIS OF LIVER Status: Chronic Qualifiers: Hepatic cirrhosis type: alcoholic cirrhosis Ascites presence: with ascites Qualified Code(s): K70.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 (4) HTN (hypertension) Code(s): I10 - ESSENTIAL (PRIMARY) HYPERTENSION Status: Chronic Qualifiers: Hypertension type: essential hypertension Qualified Code(s): I10 - Essential (primary) hypertension - Plan * Aspiration Pneumonia- Continue Zosyn- and consider transittion to oral antibiotic olayinka day or so * Cirrhosis- patient had a large volume paracentesis yesterday- continue as per GI * HTN- blood pressure is stable * Acute renal failure- improving with hydration and Albumin * Severe deconditioning- continue PT/OT, and consider Rehab or Skllled nursing at discharge.
[2017-10-16] MEDS: Docusate 100 MG CAP PO SCH ×3 (08:40→21:42)
[2017-10-16] MEDS: Famotidine 20 MG TAB PO SCH (08:40)
[2017-10-16] MEDS: Potassium Chloride 20 MEQ TAB PO SCH ×2 (08:41→17:10)
[2017-10-16] MEDS: 1/2 NS w/KCL 20 mEq 1,000 ML IV SCH (11:32)
--- NOTE | 2017-10-16 22:54 | PRG ---
DATE OF SERVICE: 10/16/2017 SUBJECTIVE: Mr. Martínez reports that his abdomen is more comfortable after paracentesis yesterday. He has no acute complaints today. OBJECTIVE: VITAL SIGNS: Temperature 97.7, pulse 63, blood pressure 119/61. GENERAL: He is in no acute distress, awake and alert. LUNGS: Clear to auscultation bilaterally. HEART: Regular rate and rhythm. ABDOMEN: Distended but very soft currently. His abdomen is nontender. EXTREMITIES: No lower extremity edema. LABORATORY DATA: His creatinine is down to 2.34 today, which is the slight improvement. IMPRESSION: 1. Pneumonia. 2. Acute renal failure. 3. Cirrhosis. 4. Ascites status post paracentesis yesterday. PLAN: 1. He remains on antibiotics for the pneumonia. 2. Diuretics and nadolol have been held. 3. Remains on IV fluids.
[2017-10-17] MEDS: Piperacillin/Tazobactam 3.375 GM in Sodium Chloride 0.9% 100 ML IVPB SCH ×3 (00:05→11:44)
[2017-10-17] MEDS: 1/2 NS w/KCL 20 mEq 1,000 ML IV SCH ×3 (05:24→17:02)
[2017-10-17 06:15] LABS: Anion Gap 12 mmol/L (10-20); BUN (Urea Nitrogen) 44 mg/dL (8.4-25.7); Calc. Creatinine Clearance 31 mL/min (70-130); Calcium 9.4 mg/dL (7.8-10.44); Carbon Dioxide 21 mmol/L (23-31); Chloride 118 mmol/L (98-107); Estimated GFR-MDRD 30; Glucose 206 mg/dL (83-110); Potassium 3.5 mmol/L (3.5-5.1); Sodium 147 mmol/L (136-145)
[2017-10-17] MEDS: Famotidine 20 MG TAB PO SCH (08:14)
[2017-10-17] MEDS: Docusate 100 MG CAP PO SCH (08:14)
--- NOTE | 2017-10-17 11:47 | PDOC.PN ---
- Subjective Encounter Start Date: 10/17/17 Encounter Start Time: 11:45 Mr. Martínez was seen today in follow-up. He does not have any complaints but appears very weak. He only ate about 20% of breakfast. He denies feeling short of breath, and denies any cough. - Objective Resuscitation Status: Resuscitation Status FULL:Full Resuscitation MAR Reviewed: Yes Vital Signs & Weight: Vital Signs (12 hours) Temp Pulse Resp BP Pulse Ox 10/17/17 10:51 95 10/17/17 08:00 97.4 F L 75 18 96 10/17/17 07:50 97.4 F L 75 18 107/56 L 95 Weight Admit Weight 190 lb Weight 190 lb I&O: 10/16/17 10/17/17 10/18/17 06:59 06:59 06:59 Intake Total 1375 1140 Output Total 150 Balance 1225 1140 Result Diagrams: 10/13/17 03:56 10/17/17 05:32 Phys Exam - Physical Examination HEENT: PERRLA No rales, decreased breath sounds on the right base Cardiovascular: RRR, no significant murmur, no rub Gastrointestinal: soft, non-tender + mild distension Musculoskeletal: edema present trace pedal edema Dx/Plan (1) Pneumonia Code(s): J18.9 - PNEUMONIA, UNSPECIFIED ORGANISM Status: Acute Qualifiers: Pneumonia type: due to unspecified organism Laterality: right Lung location: lower lobe of lung Qualified Code(s): J18.1 - Lobar pneumonia, unspecified organism Comment: On Zosyn for healthcare acquired pneumonia, will add metronidazole for possible aspiration as well due to location and weakness/dementia, speech therapy eval of swallow (2) Acute on chronic renal failure Code(s): N17.9 - ACUTE KIDNEY FAILURE, UNSPECIFIED; N18.9 - CHRONIC KIDNEY DISEASE, UNSPECIFIED Status: Acute Qualifiers: Chronic kidney disease stage: stage 2 (mild) Comment: prerenal, give gentle fluids (3) Cirrhosis Code(s): K74.60 - UNSPECIFIED CIRRHOSIS OF LIVER Status: Chronic Qualifiers: Hepatic cirrhosis type: alcoholic cirrhosis Ascites presence: with ascites Qualified Code(s): K70.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 (4) HTN (hypertension) Code(s): I10 - ESSENTIAL (PRIMARY) HYPERTENSION Status: Chronic Qualifiers: Hypertension type: essential hypertension Qualified Code(s): I10 - Essential (primary) hypertension - Plan * Pneumonia- Will change the antibiotic to Augmentin * Cirrhosis- stable * Acute renal failure- improving- patient is still on IV fluids- will defer to Dr. Singh * Severe deconditioning- continue to encourage activity, and oral intake * Will restart his medications for Dementia- he may have some depression in dementia as well, will monitor over the next few days
--- NOTE | 2017-10-17 14:45 | PRG ---
DATE OF SERVICE: 10/17/2017 SUBJECTIVE: Mr. Martínez is tolerating a solid diet, but not eating large amounts. He has no abdomin al pain or discomfort. No nausea or vomiting. OBJECTIVE: VITAL SIGNS: Temperature 97.4, pulse 75, and blood pressure 107/56. GENERAL: He is in no acute distress, awake and alert. LUNGS: Clear to auscultation bilaterally. HEART: Regular rate and rhythm. ABDOMEN: Distended, but soft. Bowel sounds are present. EXTREMITIES: No lower extremity edema. IMPRESSION: 1. Cirrhosis of the liver, likely secondary to past alcohol. Currently, stable. 2. Ascites. 3. Acute renal failure after initiation of spironolactone, furosemide, and nadolol. These medicatio ns had been held. RECOMMENDATIONS: 1. Continue to follow the fluid status by checking body weight daily. He is on IV fluids for his ac sadi renal failure followed by Nephrology. 2. Low-salt diet. 3. Daily weight.
[2017-10-17] MEDS: Amoxicillin/Potassium Clav 875 MG TAB PO SCH (21:45)
[2017-10-18 05:37] VITALS: BMI 26.4
[2017-10-18] MEDS: Docusate 100 MG CAP PO SCH ×2 (05:52→09:12)
[2017-10-18] MEDS: 1/2 NS w/KCL 20 mEq 1,000 ML IV SCH (05:52)
--- NOTE | 2017-10-18 07:26 | PDOC.PN ---
- Subjective Encounter Start Date: 10/18/17 Encounter Start Time: 07:23 Mr. Martínez was seen today in follow-up. He does not have any complaints this morning. He is still not eating much, but he appears less depressed. - Objective Resuscitation Status: Resuscitation Status FULL:Full Resuscitation MAR Reviewed: Yes Vital Signs & Weight: Vital Signs (12 hours) Temp Pulse Resp BP Pulse Ox 10/17/17 20:00 97.5 F L 72 20 118/62 94 L Weight Admit Weight 190 lb Weight 194 lb 15.276 oz I&O: 10/17/17 10/18/17 10/19/17 06:59 06:59 06:59 Intake Total 1140 500 Balance 1140 500 Result Diagrams: 10/13/17 03:56 10/17/17 05:32 Phys Exam - Physical Examination HEENT: PERRLA Respiratory: no wheezing, no rales, no rhonchi, clear to auscultation bilateral Cardiovascular: RRR, no significant murmur, no rub Gastrointestinal: soft, non-tender, no distention, positive bowel sounds Musculoskeletal: no edema Dx/Plan (1) Pneumonia Code(s): J18.9 - PNEUMONIA, UNSPECIFIED ORGANISM Status: Acute Qualifiers: Pneumonia type: due to unspecified organism Laterality: right Lung location: lower lobe of lung Qualified Code(s): J18.1 - Lobar pneumonia, unspecified organism Comment: On Zosyn for healthcare acquired pneumonia, will add metronidazole for possible aspiration as well due to location and weakness/dementia, speech therapy eval of swallow (2) Acute on chronic renal failure Code(s): N17.9 - ACUTE KIDNEY FAILURE, UNSPECIFIED; N18.9 - CHRONIC KIDNEY DISEASE, UNSPECIFIED Status: Acute Qualifiers: Chronic kidney disease stage: stage 2 (mild) Comment: prerenal, give gentle fluids (3) Cirrhosis Code(s): K74.60 - UNSPECIFIED CIRRHOSIS OF LIVER Status: Chronic Qualifiers: Hepatic cirrhosis type: alcoholic cirrhosis Ascites presence: with ascites Qualified Code(s): K70.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 (4) HTN (hypertension) Code(s): I10 - ESSENTIAL (PRIMARY) HYPERTENSION Status: Chronic Qualifiers: Hypertension type: essential hypertension Qualified Code(s): I10 - Essential (primary) hypertension - Plan * Pneumonia- likely due to aspiration- he has been changed to Augmentin * Cirrhosis- stable- he has had a large volume paracemtesis- no evidence of SBP * Acute renal failure- improving- he is on IV fluids- will continue as per Nephrology * Severe deconditioning- awaiting [facility] and rehab screen.
[2017-10-18] MEDS ORDERED: Donepezil HCl 10 MG TAB PO SCH (09:00)
[2017-10-18] MEDS ORDERED: Multivitamin W/ Minerals 1 TAB PO SCH (09:00)
[2017-10-18] MEDS: Famotidine 20 MG TAB PO SCH (09:06)
[2017-10-18] MEDS: Amoxicillin/Potassium Clav 875 MG TAB PO SCH (09:07)
[2017-10-18 09:18] VITALS: TEMP 97.8
[2017-10-18 13:24] VITALS: BP 137/78
--- NOTE | 2017-10-18 21:00 | DIS ---
PRIMARY CARE PHYSICIAN: Dr. Duke Minor. DATE OF ADMISSION: 10/12/2017 DATE OF DISCHARGE: 10/18/2017 DISCHARGE DISPOSITION: To inpatient rehabilitation. DISCHARGE DIAGNOSES: 1. Pneumonia, likely due to aspiration. 2. Cirrhosis. 3. Acute renal failure, resolved. 4. Dyslipidemia. 5. Severe deconditioning. DISCHARGE MEDICATIONS: Please note that the patient has been taken off of Lasix 40 mg daily as well as spironolactone 25 mg daily and nadolol 40 mg daily due to acute renal failure. These will need to be restarted at the discretion of the wildlife officer. He is to continue Augmentin 875 mg twice a day for 5 days, donepezil 10 mg daily, Pepcid 20 mg daily, mg twice a day and multivita min once a day. PROCEDURES DONE DURING ADMISSION: The patient had a CT scan of the brain, which showed some atrophy and chronic ischemic white matter change, but there was no mass or bleed. The patient had a modified barium swallow. There was some penetration and aspiration with thin liquid consistency and prematur e spillage of the pyriform sinuses in the vallecula with nectar thick and honey thick liquids as well as pudding consistency. The patient also had a large volume paracentesis with the removal of 3.2 li ters of fluid. CODE STATUS: FULL CODE. ALLERGIES: No known drug allergies. HOSPITAL COURSE: Mr. Martínez is a pleasant 86-year-old gentleman who presented to the emergency room with complaints of hypotension and generalized weakness and poor appetite. He was admitted and foun d to have a aspiration pneumonia. This likely contributed to his symptoms of malaise and anorexia. During his hospital stay, he was also noted to have fairly large amount of ascites and this was possi marva contributing to his decrease in oral intake as well. He underwent a large volume paracentesis. The fluid was sent for culture and this was negative. He was treated for the pneumonia during his ho spital stay and also he was noted to have an acute on chronic kidney disease, which improved as well and due to his severe deconditioning, he was transferred to the inpatient rehabilitation unit for imp roved muscle strength and coordination.
--- NOTE | 2017-11-05 15:05 | EKG ---
Test Reason : WEAKNESS Blood Pressure : / mmHG Vent. Rate : 060 BPM Atrial Rate : 060 BPM P-R Int : 210 ms QRS Dur : 066 ms QT Int : 464 ms P-R-T Axes : -11 -24 -10 degrees QTc Int : 464 ms Sinus rhythm with 1st degree A-V block with Premature atrial complexes with Abberant conduction Low voltage QRS Inferior infarct , age undetermined Cannot rule out Anterior infarct , age undetermined Abnormal ECG Confirmed by MARILU العلي ([id number]), video news editor TITO SAMPSON ([id number]) on 11/05/2017 3:04:26 PM Referred By: Confirmed By:MARILU العلي
== END 2017-10-18 16:43 | DRG 178 ==
LOC: ERS 17:15 → 2NO 18:54 → ONC 10-13 14:02
PROVIDERS: ADMIT Emergency Medicine; ATTEND Emergency Medicine
PROC: 0W9G3ZX Drainage of Peritoneal Cavity, Percutaneous Approach, Diagnostic (ICD-10-PCS; principal; 2017-10-15)
DX: J69.0 Pneumonitis due to inhalation of food and vomit (principal); N17.9 Acute kidney failure, unspecified; K86.2 Cyst of pancreas; E86.0 Dehydration; E11.22 Type 2 diabetes mellitus with diabetic chronic kidney disease; I12.0 Hypertensive chronic kidney disease with stage 5 chronic kidney disease or end stage renal disease; K72.90 Hepatic failure, unspecified without coma; F02.80 Dementia in other diseases classified elsewhere, unspecified severity, without behavioral disturbance, psychotic disturbance, mood disturbance, and anxiety; K70.31 Alcoholic cirrhosis of liver with ascites; N18.2 Chronic kidney disease, stage 2 (mild); E78.5 Hyperlipidemia, unspecified; Z90.5 Acquired absence of kidney; G30.0 Alzheimer's disease with early onset; R63.0 Anorexia; Z68.26 Body mass index [BMI] 26.0-26.9, adult
CPT/HCPCS: 36415; 49083; 70450; 71045; 74230; 80048; 80053; 81001; 82140; 82550; 82553; 82570; 83735; 84300; 84484; 85025; 85060; 85610; 85730; 87040; 89051; 93005; 94640; 96361; 96365; 96366; 96367; 96368; A4216; G8978-GP-CK; G8979-GP-CJ; G8987-GO-CK; G8988-GO-CI; G8996-GN-CL; G8996-GN-CN; G8997-GN-CK; J0456; J0696; J1956; J2543; J3370; J7050; J7620; P9047